=== PATIENT | male | born 1945 | race Caucasian/White ===

== ENCOUNTER 2018-05-03 09:54 | Inpatient (IN) | payer MEDICARE, OTHER ==
--- NOTE | 2018-05-03 10:11 | ED ---
HPI Chest Pain - HPI Summary HPI Summary: This is scribe Paulo Burleson documenting for attending Dr. Ed Sidhu. This patient is a 73 year old M presenting to [facility] with a chief complaint of 8/10 at its worst chest pain and pressure since 0800. Pt endorses the pain is diffuse across his entire chest. He denies no more than baseline SOB, and endorses he smoked in the past. He denies PMHx NE, and states he has had stress test 6 months ago. PMHx HTN, HLD, no DM. Currently he denies N/V. Given NTG by EMS, took ASA before EMS arrival, both of which helped sx. I, Dr. Ward personally performed the services described in this documentation as scribed in my presence and it is both accurate and complete. - History of Current Complaint Chief Complaint: EDChestPainROMI Time Seen by Provider: 05/03/18 10:02 Hx Obtained From: Patient Timing: Intermittent Initial Severity: Severe Current Severity: Mild Pain Intensity: 1 Pain Scale Used: 0-10 Numeric Chest Pain Location: Diffuse Chest Pain Radiates: No Character: Pressure/Squeezing Aggravating Factor(s): Nothing Alleviating Factor(s): Medication - ASA, NTG 123 Associated Signs and Symptoms: Positive: Chest Pain, Shortness of Breath - but baseline. Negative: Fever, Nausea, Vomiting - Allergy/Home Medications Allergies/Adverse Reactions: Allergies Allergy/AdvReac Type Severity Reaction Status Date / Time Unable to Assess Allergy Verified 05/03/18 14:29 Home Medications: Home Medications Albuterol inh POWDER (NF) [Proair Respiclick] 2 puff INH .TID-QID PRN 05/03/18 [ History Confirmed 05/03/18] Cholecalciferol TAB* [Vitamin D TAB*] 1,000 unit PO DAILY 05/03/18 [History Confirmed 05/03/18] Doxazosin TAB* [Cardura TAB*] 4 mg PO DAILY 05/03/18 [History Confirmed 05/03/18 ] Garlic [Odorless Garlic] 500 mg PO DAILY 05/03/18 [History Confirmed 05/03/18] Levothyroxine TAB* [Synthroid TAB*] 75 mcg PO DAILY 05/03/18 [History Confirmed 05/03/18] Multivitamins/Minerals TAB* [Theragran/minerals TAB*] 1 tab PO DAILY 05/03/18 [ History Confirmed 05/03/18] Nisoldipine ER (NF) [Sular (NF)] 8.5 mg PO DAILY 05/03/18 [History Confirmed 05/13] Simvastatin TAB(NF) [Zocor(NF)] 20 mg PO DAILY 05/03/18 [History Confirmed 05/03] Topiramate TAB(*) [Topamax 100 mg tab] 200 mg PO BID 05/03/18 [History Confirmed 05/03/18] PMH/Surg Hx/FS Hx/Imm Hx Endocrine/Hematology History: Denies: Hx Diabetes Cardiovascular History: Reports: Hx Hypercholesterolemia, Hx Hypertension Denies: Hx Myocardial Infarction Sensory History: Denies: Hx Legally Blind, Hx Deafness Opthamlomology History: Denies: Hx Legally Blind EENT History: Denies: Hx Deafness Psychiatric History: Denies: Hx Panic Disorder, Hx Schizophrenia Infectious Disease History: No Infectious Disease History: Denies: Traveled Outside the [place] in Last 30 Days - Family History Known Family History: Negative: Blood Disorder - Social History Occupation: Retired Alcohol Use: Rare Substance Use Type: Reports: None Hx Tobacco Use: Yes Smoking Status (MU): Former Smoker Review of Systems Negative: Fever Positive: Chest Pain Positive: Shortness Of Breath Negative: Vomiting, Nausea Positive: no symptoms reported Positive: Myalgia - CP radiating to back All Other Systems Reviewed And Are Negative: Yes Physical Exam - Summary Physical Exam Summary: VITAL SIGNS: Reviewed. GENERAL: Patient is an obese male who is lying comfortable in the stretcher. Patient is not in any acute respiratory distress. HEAD AND FACE: No signs of trauma. No ecchymosis, hematomas or skull depressions. No sinus tenderness. EYES: PERRLA, EOMI x 2, No injected conjunctiva, no nystagmus. EARS: Hearing grossly intact. Ear canals and tympanic membranes are within normal limits. MOUTH: Oropharynx within normal limits. NECK: Supple, trachea is midline, no adenopathy, no JVD, no carotid bruit, no c- spine tenderness, neck with full ROM. CHEST: Symmetric, no tenderness at palpation LUNGS: Clear to auscultation bilaterally. No wheezing or crackles. CVS: Regular rate and rhythm, S1 and S2 present, no murmurs or gallops appreciated. ABDOMEN: Soft, non-tender. No signs of distention. No rebound no guarding, and no masses palpated. Bowel sounds are normal. EXTREMITIES: FROM in all major joints, no edema, no cyanosis or clubbing. NEURO: Alert and oriented x 3. No acute neurological deficits. Speech is normal and follows commands. SKIN: Dry and warm Triage Information Reviewed: Yes Vital Signs On Initial Exam: Initial Vitals Temp Pulse Resp BP Pulse Ox 97.5 F 73 17 131/72 95 05/03/18 09:55 05/03/18 09:55 05/03/18 09:55 05/03/18 09:55 05/03/18 09:55 Vital Signs Reviewed: Yes Diagnostics - Vital Signs Vital Signs Temp Pulse Resp BP Pulse Ox 05/03/18 09:55 97.5 F 73 17 131/72 95 - Laboratory Result Diagrams: 05/03/18 10:43 05/03/18 10:43 Lab Statement: Any lab studies that have been ordered have been reviewed, and results considered in the medical decision making process. - Radiology CXR Xray Interpretation: No Acute Changes Radiology Interpretation Completed By: Radiologist - No active disease. Dr. Ward has reviewed this report. - EKG 1001 Cardiac Rate: NL - 75 EKG Rhythm: Sinus Rhythm ST Segment: Normal Ectopy: None EKG Interpretation: nl axis, no ST elevation 1443 Cardiac Rate: Bradycardia - 55 EKG Rhythm: Sinus Bradycardia ST Segment: Normal Ectopy: None EKG Interpretation: No ST elevations, nl axis. Re-Evaluation - Re-Evaluation First Eval Re-Evaluation Time: 12:29 Change: Improved Comment: Pt denies CP at this time. Second Eval Re-Evaluation Time: 15:52 Change: Worse Comment: Pt is now wheezing, will be given albuterol. Chest Pain Course/Dx - Course Assessment/Plan: This patient is a 73-year-old male who presents to the emergency room with a chief complaint of having chest pain. He reports that the pain is a pressure-like pain without radiation. He denies any shortness of breath dizziness or palpitations. Initially the ED course the patient was placed on a retail bakery manager, IV access was obtained, he already took aspirin this morning and he was given nitroglycerin by EMS. Patient reports that after the Nitroglycerin the symptoms improved. Test results without any significant abnormality except for glucose of 140. Urinalysis is negative for UTI. Chest x -ray impression: no active disease. EKG shows no ST elevations. The patient has remained stable and without any chest pain since arrival to the emergency department. The first troponin is 0.00, however the second troponin is elevated to 0.12. The second EKG doesnt show any ST elevations. He reassessment the patient is wheezing slightly bilaterally therefore the patient was given albuterol. Dr. Joe is consulting for the patient since the patient is having and increase in troponin. She recommends for the patient to be placed on a nitro drip and nifedipine drip. The patient also be getting a heparin drip. These medications was ordered by Herrera Cassidy NP. At this point because of the increased troponin I discussed my physical exam and findings with Dr. Diaz from the hospitalist services who accepted the patient for admission. The patient is hemodynamically stable alert oriented 3. - Chest Pain Differential Diagnosis/HQI/PQRI: Acute NE, ACS, Angina, CHF, Chest Wall, GI Disease, Lower Respiratory Infection - Diagnoses Provider Diagnoses: Unstable angina, Elevated troponin - Provider Notifications Discussed Care Of Patient With: Merlyn Diaz Time Discussed With Above Provider: 14:55 Instructed by Provider To: Other - Accepted admission - Critical Care Time Critical Care Time: 75-104 min Discharge - Sign-Out/Discharge Documenting (check all that apply): Patient Departure - Admit - Discharge Plan Condition: Fair Disposition: ADMITTED TO [facility] - Billing Disposition and Condition Condition: FAIR Disposition: Admitted to [facility] Consult Consult: 1450: Dr. Joe: recommends admission.
[2018-05-03 10:53] LABS: Hematocrit 46 % (42-52); Hemoglobin 15.7 g/dl (14.0-18.0); Mean Corpuscular HGB Conc 34 g/dl (31-36); Mean Corpuscular Hemoglobin 31 pg (27-31); Mean Corpuscular Volume 91 fL (80-94); Platelet Count 161 10^3/ul (150-450); Red Blood Count 5.05 10^6/ul (4.00-5.40); Red Cell Distribution Width 13 % (10.5-15); White Blood Count 9.2 10^3/ul (3.5-10.8)
[2018-05-03 10:54] LABS: ABS Basophils 0 10^3/ul (0-0.2); ABS Eosinophils 0.1 10^3/ul (0-0.6); ABS Lymphocytes 1.1 10^3/ul (1.0-4.8); ABS Monocytes 0.6 10^3/ul (0-0.8); ABS Neutrophils 7.4 10^3/ul (1.5-7.7); ABS Nucleated RBC 0 10^3/ul; Eosinophil % 1.5 % (0-6); Lymphocyte % 11.4 % (25-47); Mean Platelet Volume 7.7 um3 (7.4-10.4); Nucleated Red Blood Cells % 0.1
[2018-05-03 11:03] LABS: INR 1.03 (0.77-1.02)
--- NOTE | 2018-05-03 11:11 | RAD ---
INDICATION: Chest pain COMPARISON: June 22, 2016 TECHNIQUE: An AP portable view obtained at 1057 hours is submitted. FINDINGS: Bones/Soft Tissues: There are no acute bony findings. Cardiomediastinal: The cardiomediastinal silhouette is normal. Lungs: There are no infiltrates. Pleura: There are no pleural effusions. Other: None IMPRESSION: NO ACTIVE DISEASE.
[2018-05-03 11:12] LABS: Urine Appearance Clear; Urine Blood Negative (Negative); Urine Color Yellow; Urine Ketones Negative (Negative); Urine Protein Negative (Negative); Urine Specific Gravity 1.011 (1.010-1.030); Urine Urobilinogen Negative (Negative)
[2018-05-03 11:16] LABS: EGFR Non-African American 78.2 (>60)
[2018-05-03] MEDS ORDERED: Acetaminophen TAB* 325 MG PO PRN (15:36)
[2018-05-03] MEDS ORDERED: Albuterol HFA INHALER* 8 gm MDI INH PRN (15:42)
[2018-05-03] MEDS ORDERED: Heparin DRIP 25,000 UNITS(*) 25,000 UNITS/500 ML BAG IV SCH (15:45)
[2018-05-03] MEDS ORDERED: Levalbuterol 1.25MG/0.5ML NEB INH ONE (15:53)
[2018-05-03] MEDS ORDERED: amLODIPine TAB* 5 MG PO SCH (16:00)
[2018-05-03] MEDS ORDERED: Levalbuterol 1.25MG/0.5ML NEB INH PRN (16:01)
[2018-05-03] MEDS: Atorvastatin* 80 MG TAB PO SCH ×2 (16:14→17:14)
[2018-05-03] MEDS: amLODIPine TAB* 5 MG PO SCH (16:14)
[2018-05-03] MEDS: Heparin VIAL(*) 5000 UNITS/ML VIAL (FIVE THOUSAND) IV PRN (16:31)
[2018-05-03] MEDS: nitroGLYCERIN DRIP* 25,000 MCG/250 ML BTL IV SCH (16:35)
--- NOTE | 2018-05-03 18:59 | HP ---
CC: Dr. Greene; Dr. Joe * HISTORY AND PHYSICAL: DATE OF ADMISSION: 05/03/18. PRIMARY CARE PROVIDER: Dr. Greene. ATTENDING PHYSICIAN WHILE IN THE HOSPITAL: Merlyn Diaz DO * (report dictated by Herrera Cassidy NP). CONSULTING PAPER MAKER: Dr. Joe. CHIEF COMPLAINT: 1. Chest pressure. 2. Not feeling well. HISTORY OF PRESENT ILLNESS: Mr. Saldana is a 73-year-old male patient. He carries a history of hypertension, hyperlipidemia. He also carries a history of hypothyroidism and seizures. He comes into our emergency department today, stating that this morning, he got up to make his breakfast, he was getting a glass of milk and he just was not feeling well. He just was feeling weak. He was feeling short of breath. He just was feeling wore out and tired. He started getting chest discomfort. He sat down, the pain got much worse. He got this in his chest, this was around 08:30. He was scheduled to go see, had an appointment with Dr. Greene. He got nauseated. He was feeling sweaty. The pain was going into his chest, into his shoulder, to his back. He sat down , when he took aspirin with his and the discomfort went away. It took about 10 to 15 minutes. She was concerned and she called 911 and the patient was brought to the hospital. He does state that he has noticed over the last several weeks that he has had episodes of feeling dyspnea on exertion. He has not really been having any chest pain on exertion, but there has been a lot of dyspnea on exertion, lot of decreased exercise tolerance and he just has not been feeling well. He says he has not had any recent cough, fevers, chills, nausea, vomiting, or diarrhea. He said today he did not feel lightheaded. He did not feel like he was going to faint or pass out, but he just did not feel right. He denies any recent change in medications. He came into the ER, he was evaluated. Initially, EKG and troponin looked okay. Second troponin though was elevated and because of his story and the fact that in the ED he did have a 8-beat run of V-tach, we were asked to evaluate for admission. PAST MEDICAL HISTORY: Significant for: 1. Hypertension. 2. Hyperlipidemia. 3. Hypothyroidism. 4. Seizures. PAST SURGICAL HISTORY: He denied. HOME MEDICATIONS: Include: 1. ProAir 2 puffs inhaled t.i.d. as needed. 2. Nisoldipine 8.5 mg daily. 3. Vitamin D 1000 units p.o. daily. 4. Garlic 500 mg p.o. daily. 5. Multivitamin 1 tablet daily. 6. Synthroid 75 mcg daily. 7. Zocor 20 mg daily. 8. Topamax 200 mg p.o. b.i.d. 9. Cardura 4 mg p.o. daily. ALLERGIES TO MEDICATIONS: Include LEVAQUIN, AMOXICILLIN, and ALBUTEROL. FAMILY HISTORY: He says mother had a history of CHF. Father had a history of CAD. SOCIAL HISTORY: He is a former smoker. He does not drink alcohol. Surrogate decision maker is his . REVIEW OF SYSTEMS: There is no documented fever. He denies having any significant weight change. There was no double vision. He denies having any ear discharge. There was no rhinorrhea. He denies having any sore throat. There was no thyroid enlargement. There was chest pain per my HPI. There was no orthopnea. There was no nocturnal dyspnea. There was no abdominal pain. There was no nausea, no vomiting, no dysuria. No frequency. No seizure. No loss of consciousness. No pruritus and no skin ulcerations. Review of 14 systems completed, all others negative. PHYSICAL EXAMINATION GENERAL: At this time, Mr. Saldana is a 73-year-old male patient. He appears to be well-nourished, well-developed. He is sitting in the ED stretcher. He does not appear to be in any acute distress. VITAL SIGNS: Blood pressure 157/81, pulse 60, respirations 16, O2 sat 99%, temperature 97.9. HEENT: Head is atraumatic and normocephalic. Eyes: EOMs are intact. Sclerae anicteric and not pale. Throat: Oral mucosa appears to be moist. No oropharyngeal erythema. NECK: Supple. LUNGS: He had wheezing noted throughout. HEART: Sounds S1, S2. Regular rate and rhythm. ABDOMEN: Soft, flat, nontender. Bowel sounds are present. EXTREMITIES: Pulses were 2+ throughout. He is moving all 4 extremities with 5/ 5 strength. NEUROLOGIC: He is awake, alert, and oriented x3. No gross focal deficits. SKIN: Intact. LABORATORY DATA/DIAGNOSTIC STUDIES: Labs, WBC 9.2, RBC of 5.05, hemoglobin of 15.7, hematocrit of 46, platelet count 161. His INR was 1.03. PTT of 32.9. Sodium was 138, potassium of 4.2, chloride 109, bicarb 23, BUN 14, creatinine 0.94. Glucose 140, lactic 0.9, calcium 8.9, mag 2.1, total bili 0.3, AST 19, ALT 14, alk phos 84, CK was 67, CK-MB 3.1. Troponin was 0.01, repeat troponin was 0.12. BNP 131. TSH normal. Urine preop negative. He did have a chest x-ray obtained today, which revealed no active cardiopulmonary disease. He had an EKG, which showed sinus bradycardia. No ST elevations or T-wave inversions, but his initial EKG showed a normal sinus rhythm, rate of 75, again no ST elevations or T-wave inversions. Old medical records were reviewed. ASSESSMENT AND PLAN: Mr. Saldana is a 73-year-old male patient coming into the ED today with complaints of chest pain. He will be admitted under inpatient status for: 1. Acute coronary syndrome: I suspect the patient is having a [id number] elevation myocardial infarction. I did touch base with Dr. Joe, she has evaluated the patient. Plan: He does have a little bit of residual chest discomfort. He says it is nowhere near once what it was. I am going to put him on nitrates in the form of IV nitro, amlodipine. He has got plenty of blood pressures, his last blood pressure actually was 178/100. I will go ahead and put him on a baby aspirin, high-dose statin, avoid beta-blockers given the episodes of bradycardia. Dr. Joe will touch base with Dr. Stevens. I have ordered an echo. We will cycle his troponins, get an EKG in the morning and we will continue to follow. He will be n.p.o. If the chest pain does not go away , we will certainly touch base with Dr. Stevens for a more urgent cath. 2. Hypertension: Again nitro drip, continue amlodipine. Continue to follow. 3. Wheezing on exam: He probably has underlying chronic obstructive pulmonary disease and he clarifies albuterol allergy. We will order Xopenex if we are able. 4. Hyperlipidemia: He is on high-dose statin therapy. We will check lipid panel in the morning. 6. DVT prophylaxis: He is on a heparin drip. 7. Hypothyroidism: Continue Synthroid. 8. History of seizures: I have ordered seizure precautions and Topamax. 9. Code status: Full code. 10. Fluid, electrolytes, nutrition: He is n.p.o. pending for a possible cath. TIME SPENT: Time spent on the admission was 60 minutes, greater than half of the time was spent [id number] with the patient obtaining my history and physical, the other half of the time was spent going over the plan of care with the patient and implementing the plan of care. I did discuss plan of care with my attending, Dr. Diaz, she is in agreement. HERRERA CASSIDY, LUIS M [id number]/[facility] #: [id number] SATYA
[2018-05-03] MEDS: Topiramate TAB(*) 100 MG PO SCH (20:44)
--- NOTE | 2018-05-03 21:36 | CONS ---
CC: Armani Patterson; Dr. Greene at [facility] * CARDIOLOGY CONSULTATION: DATE OF CONSULTATION: 05/03/18. REASON FOR CONSULTATION: Chest pain and elevated troponins. CHIEF COMPLAINT: The patient's chief complaint is chest pain. HISTORY OF PRESENT ILLNESS: Mr. Saldana is a 73-year-old gentleman with atherosclerotic risk, but no prior cardiac history. The patient states, he awoke this morning to go see his primary care physician, Dr. Greene and then developed quite severe chest tightness. He took an aspirin with improvement. He called an ambulance, he was given nitroglycerin. He does not think that help him a lot more and then in the emergency room was found to be hypertensive with an EKG initially was normal. Rhythm strips, however, revealed a brief run of nonsustained ventricular tachycardia and his second troponin came back elevated. At the time, I saw him, the patient stated he had mild residual chest discomfort. He did not think he has eaten anything unusual. He denies missing any medications. He denies any new [id number] medications. He has had no recent travel. No recent fevers, chills, sweats, infections, headaches. His son's girlfriend was in the room, but no other family members at the time of the exam. PAST MEDICAL HISTORY: The patient has a past medical history of hypertension, dyslipidemia, hypothyroid disease, COPD, benign prostatic hypertrophy, centripetal obesity, and hyperglycemia. He has a history of seizure disorder. CURRENT OUTPATIENT MEDICATIONS: Include: 1. Nisoldipine ER 8.5 mg a day. 2. Nitrofurantoin. 3. ProAir inhaler. 4. Multi-Mark. 5. Garlic. 6. Simvastatin 20 mg a day. 7. Levothyroxine 75 mcg. 8. Topiramate 200 mg a day. 9. Doxazosin 1 mg a day. ALLERGIES: Include CARBATROL, LEVOFLOXACIN, and AUGMENTIN. FAMILY HISTORY: Significant, his mother had hypertension and diabetes. His father had a history of prostate cancer. No coronary disease in parents or siblings identified. SOCIAL HISTORY: The patient is . 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 Smoked a pack and a half a day for 38 years, quit in 1994. Past alcohol abuse, but none recently. No history of recreational drug abuse. REVIEW OF SYSTEMS: As above, no prior history of this type of chest tightness. No recent orthopnea or PND, although he says he does have nocturia and once he gets up to urinate it is hard to fall asleep. He denies any history of sleep apnea. He denies recent fevers, chills, sweats, change in exercise tolerance. No sinus, ear problems. No dysphagia. No trouble with bowel or bladder currently. No swelling in the legs. All other 14-point review of systems was unremarkable. PHYSICAL EXAM: On exam, the patient is 5 feet 10 inches, weighs 220 pounds with a BMI of 32. Vital signs on arrival to the emergency room, blood pressure 131/72, pulse was 73, oxygen saturation 95%, temperature 97.5. At the time of my exam, blood pressure was 170/115, pulse was 55 to 62. General Appearance: Centripetally obese, older gentleman lying 40 degrees, appearing comfortable. Psychologically pleasant and cooperative. Neurologically, he is a bit hard of hearing, but awake, alert and oriented to person, place and time. Other than the hearing, cranial nerves intact. Gait is not checked, but moved well on the examining table. Skin: Age appropriate changes. Skin: Warm, dry. No cyanosis. HEENT: Mucus membranes were moist. Neck without thyromegaly or lymphadenopathy. Good carotid pulses, no audible bruits. Breath sounds, diffuse inspiratory and expiratory wheezing in all lung puente. Coronary: S1, S2, regular bit distant, but no murmurs, rubs, or extra systoles. Abdomen: Rotund. No epigastric discomfort. No appreciable hepatomegaly. Lower extremities had strong 2 to 3+ posterior tibial pulses that are symmetrical and strong symmetrical radial pulses. DIAGNOSTIC STUDIES: A 12-lead ECG at 10 this morning showed normal sinus rhythm 75 beats a minute, QRS axis is 0 with normal AV and IV conduction times and unremarkable ST, J-point type variant is normal. A 12-lead ECG at 1443 showed sinus bradycardia of 55 beats a minute, QRS axis is - 15, borderline first-degree AV block, normal interventricular conduction time. Sonogram, ST segment unremarkable. Chest x-ray showed no active disease. LABORATORY DATA: White count 9.2, hematocrit 46, platelets 161. INR 1.03, PTT 33. Sodium 138, potassium 4.2, chloride 109, bicarb 23, BUN 14, creatinine 0.94, glucose 140, magnesium 2.1, AST 19, ALT 15. Troponin #1, 0.01; troponin #2, 0.12. BNP 71. TSH 1.97. Urinalysis negative for esterase and nitrites. Negative for glucose or ketones. Lipid panel from 09/28/17, showed total cholesterol 137, triglycerides 138, HDL cholesterol 34, and LDL cholesterol 75. OUTPATIENT STUDIES: He had a nuclear stress test, 06/03/16 (exercise stress), no inducible ischemia. Ejection fraction 59% and he was able to walk to stage 2 of the standard Magnus protocol with a hypertensive response. IN SUMMARY: Mr. Saldana is a 73-year-old gentleman admitted with chest tightness, atherosclerotic risk of dyslipidemia, hyperglycemia, centripetal obesity, hypertension with unremarkable EKGs, but mild bump in troponins. For the residual chest pain, I would like to try vasodilators that also have a antianginal properties including amlodipine and nitroglycerin drip. I think his heart rate is too slow for beta blockers. We will tentatively arrange for cardiac catheterization in the morning unless his anginal pain is unable to be damp down with medical therapy. The patient has been started on unfractionated heparin drip and the net c developer was contacted. [id number]/[facility] #: [id number] SATYA
--- NOTE | 2018-05-03 23:26 | ECHO ---
Patient: ROYA HATFIELD [facility] Rec#: [id number] : 1945 Date: 05/03/2018 Age: 73y Height: 177.8 cm / 70.0 in Weight: 99.79 kg / 219.9 lbs Sex: M BSA: 2.17 Room#: [facility] Admit Date#: 05/03/2018 Type: Inpatient Referring: Herrera Cassidy NP Reading: Noris Joe MD Analytical Lab Analyst: Stephanie Colmenares KIM CC: Ramona MONTENEGRO,[facility] Transthoracic Echocardiogram Indication: CP BP: 156/64 HR: 61 Rhythm: NSR Findings History: HTN,HLD,former smoker,CP. Technical Comments: The study quality is good. Completed at 1712. Left Ventricle: The left ventricular chamber size is normal. Mild to moderate concentric left ventricular hypertrophy is observed. There is normal left ventricular systolic function. The estimated ejection fraction is 50-55%. Abnormal left ventricular diastolic function is observed. Left Atrium: The left atrium is mildly dilated. Right Ventricle: The right ventricular cavity size is normal. The right ventricular global systolic function is normal. Right Atrium: The right atrium is mildly dilated. Aortic Valve: The aortic valve is trileaflet. There is no evidence of aortic valve thickening. There is no evidence of aortic regurgitation. There is no evidence of aortic stenosis. Mitral Valve: The mitral valve leaflets are mildly thickened. There is mild mitral regurgitation. lateral jet. There is no evidence of mitral stenosis. Tricuspid Valve: The tricuspid valve leaflets are normal. There is mild tricuspid regurgitation. There is evidence of mild pulmonary hypertension. There is no tricuspid stenosis. Pulmonic Valve: The pulmonic valve appears normal. There is a trace pulmonic regurgitation. There is no pulmonic stenosis. Pericardium: A pericardial fat pad is visualized. Aorta: There is mild dilatation of the ascending aorta. There is no dilatation of the aortic arch. There is no dilation of the aortic root. Pulmonary Artery: The main pulmonary artery appears normal. Venous: The venous system is not well visualized. Conclusions Mild to moderate concentric left ventricular hypertrophy is observed. The estimated ejection fraction is 50-55%, normal wall motion. Abnormal left ventricular diastolic function is observed. The right ventricular global systolic function is normal. There is mild mitral regurgitation. lateral jet. There is mild tricuspid regurgitation. There is evidence of mild pulmonary hypertension: 45 mmHg. There is mild dilatation of the ascending aorta: 3.7 cm. No prior echo to compare. Measurements Name Value Normal Range RVIDd (AP) 2D 2.4 cm (0.9 - 2.6) RVDdMajor (2D) 3.9 cm (2.2 - 4.4) RAd ISD 4CH 5 cm (3.4 - 4.9) RA (A4C)W 4.5 cm (2.9 - 4.6) IVSd (2D) 1.2 cm (0.6 - 1) LVPWd (2D) 1.3 cm (0.6 - 1) LVIDd (2D) 5 cm (3.6 - 5.4) LVIDs (2D) 3.9 cm - LV FS (2D) 22 % (25 - 45) Aortic Annulus 2 cm (1.4 - 2.6) Ao root diameter (2D) 3.1 cm (2.1 - 3.5) Ascending Ao 3.7 cm (2.1 - 3.4) Aortic arch 2.7 cm (1.8 - 3.4) Descending Ao 0.5 cm - LA dimension (AP) 2D 4.1 cm (2.3 - 3.8) LAd ISD 4CH 5.4 cm (2.9 - 5.3) LA ISD 4CH W 3.6 cm (2.5 - 4.5) Name Value Normal Range LA ESV SP 4CH (A/L) 50 ml - LA ESV SP 2CH (A/L) 55 ml - LA ESV BP (A/L) 56 ml - LA ESV BP (A/L) index 23.67 ml/m2 - LA ESV SP 4CH (MOD) 43 ml - LA ESV SP 2CH (MOD) 48 ml - Name Value Normal Range MV E-wave Vmax 1 m/sec - MV deceleration time 151 msec - MV A-wave Vmax 1 m/sec - MV E:A ratio 0.99 ratio - LV septal e' Vmax 0.06 m/sec - LV lateral e' Vmax 0.12 m/sec - LV E:e' septal ratio 16.67 ratio - LV E:e' lateral ratio 8.33 ratio - Name Value Normal Range AV Vmax 1.2 m/sec - AV VTI 33.6 cm - AV peak gradient 5.58 mmHg - AV mean gradient 3.21 mmHg - LVOT Vmax 0.9 m/sec - LVOT VTI 24.6 cm - LVOT peak gradient 3.42 mmHg - LVOT mean gradient 1.63 mmHg - Name Value Normal Range MR Vmax 3.7 m/sec - MR VTI 159 cm - Name Value Normal Range TR Vmax 3 m/sec - TR peak gradient 37 mmHg - RAP 8 mmHg - RVSP 45 mmHg - Name Value Normal Range PV Vmax 1.1 m/sec - PV peak gradient 4.53 mmHg -
[2018-05-04] MEDS: Levothyroxine TAB* 75 MCG TAB PO SCH (05:38)
[2018-05-04 06:20] LABS: ABS Basophils 0.1 10^3/ul (0-0.2); ABS Eosinophils 0.2 10^3/ul (0-0.6); ABS Lymphocytes 1.4 10^3/ul (1.0-4.8); ABS Neutrophils 8.7 10^3/ul (1.5-7.7); ABS Nucleated RBC 0 10^3/ul; Eosinophil % 1.7 % (0-6); Hematocrit 43 % (42-52); Hemoglobin 14.9 g/dl (14.0-18.0); Lymphocyte % 12.5 % (25-47); Mean Corpuscular HGB Conc 35 g/dl (31-36); Mean Corpuscular Hemoglobin 31 pg (27-31); Mean Corpuscular Volume 90 fL (80-94); Mean Platelet Volume 7.8 um3 (7.4-10.4); Nucleated Red Blood Cells % 0.1; Platelet Count 153 10^3/ul (150-450); Red Blood Count 4.73 10^6/ul (4.00-5.40); Red Cell Distribution Width 13 % (10.5-15); White Blood Count 11.3 10^3/ul (3.5-10.8)
[2018-05-04 06:26] LABS: INR 1.02 (0.77-1.02)
[2018-05-04 06:37] LABS: EGFR Non-African American 80.2 (>60)
[2018-05-04] MEDS: Heparin VIAL(*) 5000 UNITS/ML VIAL (FIVE THOUSAND) IV PRN (07:16)
[2018-05-04] MEDS ORDERED: NS 0.9% 1000 ML* 1,000 ML IV SCH (08:00)
[2018-05-04] MEDS: Topiramate TAB(*) 100 MG PO SCH ×2 (08:41→22:13)
[2018-05-04] MEDS: Aspirin 81 mg CHEW TAB* 81 MG TAB.CHEW PO SCH (08:42)
[2018-05-04] MEDS: amLODIPine TAB* 5 MG PO SCH (08:42)
[2018-05-04] MEDS: nitroGLYCERIN DRIP* 25,000 MCG/250 ML BTL IV SCH (10:04)
[2018-05-04] MEDS ORDERED: fentaNYL* 50 MCG/ML 2 ML VIAL (100 MCG VIAL) ONE ×2 (10:23→12:49)
[2018-05-04] MEDS ORDERED: Midazolam* 1 MG/ML 10 ML VIAL (10 MG) ONE (10:23)
[2018-05-04] MEDS ORDERED: Heparin 2 UNITS/ML IVPREMIX* 3,000 ML IV ONE (10:24)
[2018-05-04] MEDS ORDERED: nitroGLYCERIN DRIP* 25,000 MCG/250 ML BTL ONE (10:24)
[2018-05-04] MEDS ORDERED: Heparin(*) 1000 UNIT/ML 10 ML VIAL CATH LAB IV ONE (10:24)
[2018-05-04] MEDS ORDERED: VERAPAMIL 2.5 MG/ML 2 ML VIAL ** 5 mg/2 ml ONE (10:24)
[2018-05-04] MEDS ORDERED: Iohexol 350 (CONTRAST) 200 ML MDV IV ONE ×2 (10:24→10:27)
[2018-05-04] MEDS ORDERED: Ticagrelor* 90 MG TAB PO ONE (11:40)
[2018-05-04] MEDS ORDERED: NS 0.9% 1000 ML* 400 ML IV ONE (13:26)
[2018-05-04] MEDS ORDERED: Nitroglycerin TAB 0.4 MG* 0.4 MG TAB SL PRN (13:26)
--- NOTE | 2018-05-04 14:33 | PN ---
Subjective Date of Service: 05/04/18 Interval History: Pt sitting up in bed A+O x3 with at his bedside. He reports he "feels great ". Denies any CP. He underwent cardiac cath and had a stent placed. Objective Active Medications: Acetaminophen (Tylenol Tab*) 650 mg PO Q4H PRN PRN Reason: FEVER/PAIN Albuterol (Ventolin Hfa Inhaler*) 2 puff INH TID PRN PRN Reason: SHORTNESS OF BREATH Amlodipine Besylate (Norvasc Tab*) 5 mg PO DAILY [facility] Last Admin: 05/04/18 08:42 Dose: 5 mg Aspirin (Aspirin 81 Mg Chew Tab*) 81 mg PO DAILY [facility] Last Admin: 05/04/18 08:42 Dose: 81 mg Atorvastatin Calcium (Lipitor*) 80 mg PO 1700 [facility] Last Admin: 05/03/18 17:14 Dose: Not Given Sodium Chloride (Ns 0.9% 1000 Ml*) 400 mls @ 100 mls/hr IV .FOR 4 HOURS ONE Stop: 05/04/18 17:25 Last Admin: 05/04/18 13:51 Dose: 100 mls/hr Levalbuterol HCl (Xopenex 1.25 Mg/0.5 Ml Neb.Zara*) 1.25 mg INH Q2H PRN PRN Reason: SOB/WHEEZING Last Admin: 05/03/18 17:04 Dose: 1.25 mg Levothyroxine Sodium (Synthroid Tab*) 75 mcg PO DAILY@0600 [facility] Last Admin: 05/04/18 05:38 Dose: 75 mcg Nitroglycerin (Nitroglycerin Tab 0.4 Mg*) 0.4 mg SL Q5M PRN PRN Reason: ANGINA Ticagrelor (Brilinta*) 90 mg PO BID [facility] Topiramate (Topamax(*)) 200 mg PO BID [facility] Last Admin: 05/04/18 08:41 Dose: 200 mg Vital Signs - 8 hr 05/04/18 05/04/18 05/04/18 07:00 07:30 07:36 Temperature 99.4 F Pulse Rate 57 66 Respiratory 20 17 Rate Blood Pressure 127/57 127/59 (mmHg) O2 Sat by Pulse 94 95 Oximetry 05/04/18 05/04/18 05/04/18 07:52 08:00 08:31 Temperature Pulse Rate 62 70 Respiratory 20 23 20 Rate Blood Pressure 135/54 132/112 (mmHg) O2 Sat by Pulse 96 97 Oximetry 05/04/18 05/04/18 05/04/18 09:00 09:30 10:00 Temperature Pulse Rate 69 69 63 Respiratory 16 19 22 Rate Blood Pressure 134/58 144/65 136/57 (mmHg) O2 Sat by Pulse 93 94 92 Oximetry 05/04/18 05/04/18 05/04/18 10:30 13:00 13:27 Temperature Pulse Rate 63 76 Respiratory 15 19 Rate Blood Pressure 139/56 (mmHg) O2 Sat by Pulse 93 95 Oximetry 05/04/18 05/04/18 05/04/18 13:29 13:30 13:46 Temperature Pulse Rate 65 71 61 Respiratory 17 16 23 Rate Blood Pressure 118/48 132/57 126/54 (mmHg) O2 Sat by Pulse 98 95 96 Oximetry 05/04/18 05/04/18 05/04/18 14:00 14:04 14:16 Temperature 99.2 F Pulse Rate 77 75 Respiratory 17 23 Rate Blood Pressure 118/57 (mmHg) O2 Sat by Pulse 94 96 Oximetry Oxygen Devices in Use Now: Nasal Cannula Appearance: A+Ox3 Eyes: No Scleral Icterus, PERRLA Ears/Nose/Mouth/Throat: NL Teeth, Lips, Gums, Mucous Membranes Moist Neck: NL Appearance and Movements; NL JVP Respiratory: Symmetrical Chest Expansion and Respiratory Effort, Clear to Auscultation Cardiovascular: NL Sounds; No Murmurs; No JVD, RRR, No Edema Abdominal: NL Sounds; No Tenderness; No Distention Extremities: No Edema, No Clubbing, Cyanosis Skin: No Rash or Ulcers, No Nodules or Sclerosis Neurological: Alert and Oriented x 3, NL Sensation, NL Muscle Strength and Tone Lines/Tubes/Other Access: Clean, Dry and Intact Peripheral IV Nutrition: Taking PO's Result Diagrams: 05/04/18 06:01 05/04/18 06:01 Microbiology and Other Data: Microbiology 05/03/18 16:42 Nasal Screen MRSA (PCR) - Final Nasal Mrsa Not Detected Assess/Plan/Problems-Billing Assessment: 73 yo male with a PMH of HTN, HLD, hypothyroidism, seizure disorder who presented on 05/03 to the emergency department with chest pain found to have a NSTEMI who underwent a cardiac catherization with stent placement - Patient Problems (1) NSTEMI (non-ST elevated myocardial infarction) Comment: - chest pain free -s/p cardiac cath wth stent placement to the mid circumflex - continue Brillinta, ASA, Statin, norvasc (HR too low for BB per cardiology) (2) HTN (hypertension) Comment: - continue norvasc (3) Seizure disorder Comment: - no seizure activity - continue Topamax (4) DVT prophylaxis Status and Disposition: inpatient. home when medically stable
[2018-05-04] MEDS: Atorvastatin* 80 MG TAB PO SCH (17:07)
--- NOTE | 2018-05-04 21:56 | CONS ---
CC: Dr. Greene; Dr. Joe * INTERVENTIONAL CARDIOLOGY CONSULT NOTE: DATE OF CONSULT: 05/04/18 PRIMARY: Dr. Greene. BPM ARCHITECT: Dr. Joe. HISTORY OF PRESENT ILLNESS: A 73-year-old male with non-ST elevation infarct. Interventional cardiology was consulted for further evaluation. He has no previous cardiac history, presented with chest pain, and slowly rising troponins, had a short burst of nonsustained VT in the ER. Electrocardiograms have not showed ischemic changes. His chest pain gradually improved with medical management and finally resolved. This morning, he is pain free. PAST MEDICAL HISTORY: Hypertension, hyperlipidemia, hypothyroidism, history of remote seizures. ALLERGIES: To ANTIBIOTICS and ALBUTEROL. SOCIAL HISTORY: He is . He is an ex-smoker. REVIEW OF SYSTEMS: General: No weight loss. No fever. FEEDER ASSOCIATE: He denies any history of TIA or CVA. GI: No history of peptic ulcer disease or bleeding. Heme: No history of malignancy or anemia. Remainder all negative. PHYSICAL EXAM: BP at 0800 135/54, pulse 64, on IV nitroglycerin. His lungs are clear without rales or wheezes. JVP is normal. Carotids normal without bruits. HEENT: Normal without xanthelasma. EOMs grossly normal. Cranial nerves intact. Cardiac Exam: Regular rhythm, no palpable apical impulse, no RV lift. Normal heart sounds. Rhythm regular, no gallop or murmur. Abdomen is obese, nontender. No bruit. I cannot feel the aorta. Radial, femoral, and pedal pulses are palpable. He has no cyanosis, clubbing, or edema. Skin is warm and perfused. DIAGNOSTIC STUDIES/LAB DATA: Admission BMP notable only for random blood sugar of 140, but hemoglobin A1c in September was 5.6. His BNP 71. Cholesterol 116, triglycerides high at 155, LDL 58, HDL low at 27.1. Troponin initially 0.01, then 0.12, 0.88, 3.73. Chest x-ray reported as without acute disease. EKG normal sinus rhythm, poor R wave progression, he has not had any ischemic ST changes. Echocardiogram reported EF 50 to 55 with normal wall motion, diastolic dysfunction. IMPRESSION: 1. Non-ST elevation infarct. His chest discomfort gradually resolved with medical therapy. We have discussed catheterization, possible revascularization , procedure, risks, and complications including need for bypass grafting, CVA, bleeding, GA, stroke, etc. 2. Hypertension. 3. Dyslipidemia. 4. Obesity. [id number]/[facility] #: [id number] SATYA
[2018-05-04] MEDS: Ticagrelor* 90 MG TAB PO SCH (22:13)
[2018-05-05 04:55] LABS: ABS Basophils 0 10^3/ul (0-0.2); ABS Eosinophils 0.2 10^3/ul (0-0.6); ABS Lymphocytes 1.6 10^3/ul (1.0-4.8); ABS Monocytes 1.2 10^3/ul (0-0.8); ABS Neutrophils 8.2 10^3/ul (1.5-7.7); ABS Nucleated RBC 0 10^3/ul; Eosinophil % 1.6 % (0-6); Hematocrit 43 % (42-52); Lymphocyte % 14.1 % (25-47); Mean Corpuscular HGB Conc 35 g/dl (31-36); Mean Corpuscular Hemoglobin 31 pg (27-31); Mean Corpuscular Volume 91 fL (80-94); Nucleated Red Blood Cells % 0; Platelet Count 155 10^3/ul (150-450); Red Blood Count 4.78 10^6/ul (4.00-5.40); Red Cell Distribution Width 13 % (10.5-15); White Blood Count 11.3 10^3/ul (3.5-10.8)
[2018-05-05] MEDS: Levothyroxine TAB* 75 MCG TAB PO SCH (06:08)
--- NOTE | 2018-05-05 07:54 | PN ---
Subjective Date of Service: 05/05/18 Interval History: patient reports he feels good this morning, he denies any CP. He reports he had some SOB in the night but states that is not uncommon for him. He also reports he has a cough but reports this is also not abnormal for him. Denies sputum production. He denies wheezing. He denies fever.chills, he was noted to have a low grade temp overnight. Reports overall he feels well. He quit smoking in - has never seen a culturist and currently doesnt have a diagnosis of COPD. Objective Active Medications: Acetaminophen (Tylenol Tab*) 650 mg PO Q4H PRN PRN Reason: FEVER/PAIN Albuterol (Ventolin Hfa Inhaler*) 2 puff INH TID PRN PRN Reason: SHORTNESS OF BREATH Amlodipine Besylate (Norvasc Tab*) 5 mg PO DAILY [facility] Last Admin: 05/04/18 08:42 Dose: 5 mg Aspirin (Aspirin 81 Mg Chew Tab*) 81 mg PO DAILY [facility] Last Admin: 05/04/18 08:42 Dose: 81 mg Atorvastatin Calcium (Lipitor*) 80 mg PO 1700 [facility] Last Admin: 05/04/18 17:07 Dose: 80 mg Levalbuterol HCl (Xopenex 1.25 Mg/0.5 Ml Neb.Zara*) 1.25 mg INH Q2H PRN PRN Reason: SOB/WHEEZING Last Admin: 05/03/18 17:04 Dose: 1.25 mg Levothyroxine Sodium (Synthroid Tab*) 75 mcg PO DAILY@0600 [facility] Last Admin: 05/05/18 06:08 Dose: 75 mcg Nitroglycerin (Nitroglycerin Tab 0.4 Mg*) 0.4 mg SL Q5M PRN PRN Reason: ANGINA Ticagrelor (Brilinta*) 90 mg PO BID [facility] Last Admin: 05/04/18 22:13 Dose: 90 mg Topiramate (Topamax(*)) 200 mg PO BID [facility] Last Admin: 05/04/18 22:13 Dose: 200 mg Vital Signs - 8 hr 05/05/18 05/05/18 05/05/18 04:30 05:00 05:30 Temperature Pulse Rate 82 64 58 Respiratory 21 18 22 Rate Blood Pressure 121/69 132/56 139/59 (mmHg) O2 Sat by Pulse 92 92 91 Oximetry 05/05/18 05/05/18 05/05/18 06:00 06:30 07:00 Temperature Pulse Rate 60 67 63 Respiratory 26 16 13 Rate Blood Pressure 99/51 129/56 126/56 (mmHg) O2 Sat by Pulse 94 95 93 Oximetry 05/05/18 05/05/18 07:29 07:50 Temperature 99.3 F Pulse Rate 66 Respiratory 12 Rate Blood Pressure 138/56 (mmHg) O2 Sat by Pulse 92 Oximetry Oxygen Devices in Use Now: None Appearance: 73 yo male sitting up in a chair in NAD, A+Ox3 Eyes: No Scleral Icterus, PERRLA Ears/Nose/Mouth/Throat: NL Teeth, Lips, Gums, Mucous Membranes Moist Neck: NL Appearance and Movements; NL JVP Respiratory: Symmetrical Chest Expansion and Respiratory Effort, Clear to Auscultation Cardiovascular: NL Sounds; No Murmurs; No JVD, RRR, No Edema Abdominal: NL Sounds; No Tenderness; No Distention Extremities: No Edema, No Clubbing, Cyanosis Skin: No Rash or Ulcers, No Nodules or Sclerosis Neurological: Alert and Oriented x 3, NL Sensation, NL Muscle Strength and Tone Lines/Tubes/Other Access: Clean, Dry and Intact Peripheral IV Nutrition: Taking PO's Result Diagrams: 05/05/18 04:33 05/04/18 06:01 Microbiology and Other Data: Microbiology 05/03/18 16:42 Nasal Screen MRSA (PCR) - Final Nasal Mrsa Not Detected Assess/Plan/Problems-Billing Assessment: 73 yo male with a PMH of HTN, HLD, hypothyroidism, seizure disorder who presented on 05/03 to the emergency department with chest pain found to have a NSTEMI who underwent a cardiac catherization with stent placement - Patient Problems (1) NSTEMI (non-ST elevated myocardial infarction) Comment: -s/p cardiac cath 05/04 via right radial access with stent placement to the mid circumflex - continue Brillinta, ASA, Statin, norvasc (HR too low for BB per cardiology) - Dispo per cardiology (2) Leukocytosis Comment: mildy elevated WBCs. Low grade temp. No obvious source. urinalysis unremarkable. Send blood cx, initial chest xray negative, repeat chest xray noted to have some low O2 sats and reported SOB overnight (not uncommon for him though) suspect secondary to COPD, should be referred to Subeditor at discharge. Will continue to follow (3) HTN (hypertension) Comment: - controlled - continue norvasc (4) Seizure disorder Comment: - no seizure activity - continue Topamax (5) DVT prophylaxis Status and Disposition: inpatient. home when medically stable
[2018-05-05] MEDS: Aspirin 81 mg CHEW TAB* 81 MG TAB.CHEW PO SCH (07:57)
[2018-05-05] MEDS: amLODIPine TAB* 5 MG PO SCH (07:57)
[2018-05-05] MEDS: Ticagrelor* 90 MG TAB PO SCH ×2 (07:57→20:11)
[2018-05-05] MEDS: Topiramate TAB(*) 100 MG PO SCH ×2 (07:58→20:10)
--- NOTE | 2018-05-05 09:23 | RAD ---
INDICATION: Short of breath. Leukocytosis COMPARISON: May 03, 2018 TECHNIQUE: An AP portable view obtained at 0830 hours is submitted. FINDINGS: Bones/Soft Tissues: There are no acute bony findings. Cardiomediastinal: The cardiomediastinal silhouette is normal. Lungs: There are no infiltrates. Pleura: There are no pleural effusions. Other: None IMPRESSION: NO ACTIVE DISEASE
[2018-05-05 09:26] LABS: EGFR Non-African American 77.3 (>60)
[2018-05-05] MEDS: Atorvastatin* 80 MG TAB PO SCH (17:53)
[2018-05-06] MEDS: Levothyroxine TAB* 75 MCG TAB PO SCH (05:07)
[2018-05-06 07:16] LABS: ABS Basophils 0 10^3/ul (0-0.2); ABS Eosinophils 0.3 10^3/ul (0-0.6); ABS Lymphocytes 1.8 10^3/ul (1.0-4.8); ABS Monocytes 1.1 10^3/ul (0-0.8); ABS Neutrophils 7.1 10^3/ul (1.5-7.7); ABS Nucleated RBC 0 10^3/ul; Eosinophil % 3.2 % (0-6); Hematocrit 43 % (42-52); Hemoglobin 14.9 g/dl (14.0-18.0); Lymphocyte % 17.7 % (25-47); Mean Corpuscular HGB Conc 34 g/dl (31-36); Mean Corpuscular Hemoglobin 31 pg (27-31); Mean Corpuscular Volume 91 fL (80-94); Mean Platelet Volume 7.9 um3 (7.4-10.4); Nucleated Red Blood Cells % 0; Platelet Count 169 10^3/ul (150-450); Red Blood Count 4.76 10^6/ul (4.00-5.40); Red Cell Distribution Width 13 % (10.5-15); White Blood Count 10.4 10^3/ul (3.5-10.8)
[2018-05-06 07:34] LABS: EGFR Non-African American 75.5 (>60)
[2018-05-06] MEDS: Topiramate TAB(*) 100 MG PO SCH (08:09)
[2018-05-06] MEDS: amLODIPine TAB* 5 MG PO SCH (08:10)
[2018-05-06] MEDS: Ticagrelor* 90 MG TAB PO SCH (08:10)
[2018-05-06] MEDS: Aspirin 81 mg CHEW TAB* 81 MG TAB.CHEW PO SCH (08:10)
[2018-05-06 13:53] VITALS: BP 129/51
--- NOTE | 2018-05-06 15:49 | CATH ---
CC: Dr. Joe; Dr. Greene STENT REPORT: DATE OF PROCEDURE: 05/04/18 PRIMARY CARE PHYSICIAN: Dr. Greene HUMAN SERVICES CARE SPECIALIST: Dr. Joe. PROCEDURES: 1. Right radial artery access, bilateral selective coronary cineangiography. 2. Left heart catheterization. 3. Stent placement, circumflex 2.5 x 28 Synergy drug-eluting stent. HISTORY: A 73-year-old male with non-ST elevation infarct. PROCEDURE ACCESS: Right radial artery, sheath 6F slender. MEDICATIONS: 1. Subcu lidocaine. 2. IV Versed. 3. IV fentanyl. 4. Nitroglycerin 300 mcg. 5. Verapamil 3 mg IA. 6. Heparin 2000 units IV, 3000 units IV, 3000 units IV, 3000 units IV. 7. Brilinta 180 mg p.o. loading dose. DIAGNOSTIC CATHETERS: 5F TIG4, 6FL 3.5. Circumflex intervention guide, 6FLBU 3.5 with inadequate support to deliver a stent around the circumflex ostium once the circumflex marginal was accessed, therefore exchanged to 6FVL 3.5. After diagnostic angiography, the mid circumflex occlusion was approached, I was able to access the retroflexed circumflex with a 14BMW wire, the mid circumflex occlusion was predilated with a 2.5 x 12 balloon 8 atmospheres 22 seconds. A 2.5 x 28 Synergy stent was then advanced, but would not pass into the circumflex because of the retroflexed origin, the guiding system prolapsed. It was exchanged as above. I was finally able to re-access the circumflex using a wire through a microcatheter position in the very small first marginal branch to transiently occlude it, then advanced a runthrough 14 wire down the circumflex. The microcatheter and its wire were then removed. The 2.5 x 28 mm stent was advanced to the mid circumflex, deployed 11 atmospheres 15 seconds. It was post dilated with a 2.5 x 20 mm noncompliant balloon with overlapping inflation 16 atmospheres x2. HEMODYNAMICS: LV 144/22, AO 135/851 with no aortic valve gradient on review of the pullback strips. ANGIOGRAPHY: RCA: The RCA is dominant with a large distribution, moderate size with diffuse luminal irregularity without significant stenosis. The PDA has a less than 50% stenosis. The RCA is heavily calcified. Left main: The left main is relatively long, has a 20% mid stenosis, has a distal 30% stenosis. LAD: The LAD is moderate, extends past the apex, it is heavily calcified, it supplies too small to moderate diagonal branches, the LAD system has luminal irregularity, but no significant stenosis. Circumflex: The circumflex is [id number] in caliber, retroflex, calcified, has a proximal 30 to 40% stenosis, then reconstitutes, then it is occluded in the mid portion, there is faint distal filling of a distal posterolateral branch. After the occlusion point was crossed, predilated, there is a moderate caliber diffusely disease posterolateral that supplies most of the obtuse margin. After it was stented and post dilated, there is normal flow, no residual stenosis; there is nonobstructive plaque distal to the stent. There is some haziness just beyond the stent, but I do not think that is a significant stenosis. CONCLUSION: 1. Single vessel disease with diffuse nonobstructive atherosclerosis with heavily calcified coronary arteries. Successful revascularization circumflex occlusion with a drug-eluting stent, complicated procedure because of long left main with retroflex circumflex. 2. No aortic stenosis. 3. LV gram not performed. LV systolic function by echo precath reported. Normal LVEF 50 to 55%. [id number]/[facility] #: [id number] [facility] SERVIC[facility]bel
--- NOTE | 2018-05-06 20:44 | DS ---
CC: Dr. Joey Greene; Dr. Maurice Avalos; Dr. Noris Joe* DISCHARGE SUMMARY: DATE OF ADMISSION: 05/03/18 DATE OF DISCHARGE: 05/06/18 PRIMARY CARE PROVIDER: Dr. Joey Greene. MY ATTENDING WHILE IN THE HOSPITAL: Dr. Maurice Avalos* (dictated by LACEY Adams). OUTPATIENT TAGMAN: Dr. Noris Joe. PRIMARY DISCHARGE DIAGNOSES: 1. Non-ST elevation myocardial infarction, status post drug-eluting stent placement in the circumflex artery. 2. Brief ventricular tachycardia. SECONDARY DISCHARGE DIAGNOSES: 1. Hypertension. 2. Hypothyroidism. 3. Hyperlipidemia. 4. Seizures. STUDIES DONE WHILE IN THE HOSPITAL: EKG from 05/03/18 shows rate of 75, QTc of 410, normal sinus rhythm, early repolarization in V2, V3, V4. No other ST- segment abnormalities. Left axis deviation. No hypertrophy or enlargement. No other abnormalities. The patient had numerous EKGs while in the hospital, which showed any other changes besides a decrease in the rate to sinus bradycardia at 56. Chest x-ray from 05/03/18 read as no active disease. Transthoracic echocardiogram from 05/03/18 read as [id number] concentric left ventricular hypertrophy was observed, estimated ejection fraction 50% to 55 %, normal wall motion, abnormal left ventricular diastolic function was observed. The right ventricular global systolic function was normal. Mild mitral regurgitation. There is no tricuspid regurgitation. There is evidence of mild pulmonary hypertension. There is mild dilatation of the ascending aorta. No prior echo to compare. Chest x-ray from 05/05/18 read as no active disease. MEDICATIONS AT DISCHARGE: 1. Doxazosin 4 mg p.o. daily. 2. Topiramate 200 mg p.o. b.i.d. 3. Simvastatin 20 mg p.o. daily. 4. Levothyroxine 75 mcg p.o. daily. 5. Multivitamin 1 tab p.o. daily. 6. Garlic 500 mg p.o. daily. 7. Vitamin D 1000 units p.o. daily. 8. Albuterol 2 puffs inhalation t.i.d. as needed. 9. Nisoldipine ER. 10. Brilinta 90 mg p.o. b.i.d. 11. Tylenol 650 mg p.o. q.4 hours as needed. 12. Aspirin 81 mg p.o. daily. 13. Lipitor 80 mg p.o. daily. 14. Nitroglycerin 0.4 mg sublingually q.5 minutes as needed. New medications at discharge: 1. Brilinta. 2. Tylenol. 3. Aspirin. 4. Lipitor. 5. Nitroglycerin. Medication discontinued at discharge: Simvastatin 20 mg p.o. daily. HOSPITAL COURSE: This is a brief summary of the patient's presentation. For more details, please see the history and physical from Herrera Cassidy NP, on 05/13. In brief, the patient is a 73-year-old male with past medical history significant for the above, who presented to the emergency department for weakness, shortness of breath, fatigue, and chest discomfort for several hours on the day of presentation. The patient was feeling in his general state of health before he woke up on the day of presentation. The patient's pain radiated into his shoulder and to his back. He took aspirin and the discomfort went away after about 10 to 15 minutes. The patient was also diaphoretic with this episode. The patient has been having several weeks of increased dyspnea on exertion, but no chest pain before this. The patient had no other recent illnesses or changes in medications. The patient came into the emergency department. The patient had an 8-beat run of V-tach while in the emergency department. The patient's troponins began to elevate while in the emergency department. The patient was admitted to the hospital. The patient was given a heparin drip, nitroglycerin drip, amlodipine, and aspirin. The patient was seen in consultation by Dr. Noris Joe. The patient was deemed to be having an NSTEMI and was scheduled for cardiac catheterization in the morning. The patient's initial blood work showed no significant abnormalities. The patient' s LDL cholesterol was 58, HDL cholesterol was 27.1. The patient had one high PTT. The patient had a cardiac catheterization with stent placement on . After catheterization, the patient had good closure on his radial access site. The patient felt great with no chest pain after the procedure. The patient had no abnormalities on telemetry. The patient was started on Brilinta , aspirin, and statin. He had several episodes of shortness of breath, which he has had in the past and has never been evaluated by a independent contractor. The patient had no shortness of breath provoked by exertion, no more chest pain. The patient does have a significant smoking history. The patient was seen in consultation by Dr. Ester Stevens before the cardiac catheterization. The patient had no other significant abnormalities during his hospitalization or complaints. The patient was stable and amenable for discharge on 05/06/18. PHYSICAL EXAMINATION ON DAY OF DISCHARGE: General: The patient is a 73-year- old male, who appears his stated age and sitting comfortably in the bed, in no acute distress. Vital Signs: At the time of evaluation, temperature 98.4, pulse rate 61, respiratory rate 20, oxygen saturation 93% on room air, blood pressure 129/51. HEENT: Head normocephalic, atraumatic. Sclerae anicteric. No conjunctival injection. Nasal mucosa moist. Oral mucosa moist. No pharyngeal erythema, discharge, or exudate. Neck: Supple, nontender. No lymphadenopathy. No carotid bruit auscultated. No JVD. Cardiac: Regular rate and rhythm. No clicks, murmurs, gallops, or rubs. Pulses are 2+ in bilateral dorsal pedis, posterior tibial, and radial areas. No bilateral lower extremity edema noted. Respiratory: Clear to auscultation bilaterally. No wheezes, rales, or rhonchi. Good air exchange bilaterally. Abdomen: Soft, nontender, nondistended. Bowel sounds present and normoactive in all 4 quadrants. No hepatosplenomegaly. No abdominal bruits auscultated. No hepatojugular reflux. Genitourinary: No suprapubic or CVA tenderness. Skin: Right-sided radial access site benign. No other rash. Neuro: Cranial nerves II through XII intact. No focal deficits. Alert and oriented x3. Psychiatric: Pleasant and cooperative. LABORATORY DATA: On day of discharge, white blood cell count 10.4, hemoglobin 14.9, platelet count 169. Sodium 140, potassium 3.9, chloride 112, carbon dioxide 22, anion gap 6, BUN 15, creatinine 0.97, glucose 119, calcium 9.0. DISCHARGE PLAN: The patient will be discharged to home. The patient has been instructed on the importance of taking his Brilinta and aspirin daily due to his drug-eluting stent. The patient will be continued on antianginal medications as above. The patient has been given nitroglycerin. For chest pain , he should take nitroglycerin or return to the hospital. The patient should follow up with Dr. Noris Joe within 1 month for monitoring of his cardiac status. The patient should follow up with his primary care provider within 1 week for general medical management. The patient should discuss referral to a independent contractor for pulmonary function testing and management of his probable COPD. The patient should engage in activity as tolerated avoiding excessive strain. The patient should discuss with Dr. Joe referral to [facility]. The patient should have a heart-healthy diet without caffeine. The patient should return to the hospital for alarming symptoms such as recurrent chest pain as above, shortness of breath, passing out, severe palpitations, or other alarming symptoms. TIME SPENT: Approximately 60 minutes was spent on the discharge of this patient , 30 of which was spent [id number] with the patient obtaining history and physical and discussing treatment plan. LACEY ADAMS [id number]/[facility] #: [id number] SATYA
== END 2018-05-06 13:40 | disposition home or self-care (01) | DRG 247 ==
LOC: ED 09:54 → ICU 15:33 → MEDTELE 05-05 15:42
PROVIDERS: ADMIT Hospitalist; ATTEND Student in an Organized Health Care Education/Training Program
PROC: 4A023N7 Measurement of Cardiac Sampling and Pressure, Left Heart, Percutaneous Approach (ICD-10-PCS; principal; 2018-05-03)
PROC: 027034Z Dilation of Coronary Artery, One Artery with Drug-eluting Intraluminal Device, Percutaneous Approach (ICD-10-PCS; 2018-05-03)
PROC: B2111ZZ Fluoroscopy of Multiple Coronary Arteries using Low Osmolar Contrast (ICD-10-PCS; 2018-05-03)
DX: I21.4 Non-ST elevation (NSTEMI) myocardial infarction (principal); I47.2 Ventricular tachycardia; I10 Essential (primary) hypertension; E03.9 Hypothyroidism, unspecified; E78.5 Hyperlipidemia, unspecified; R00.1 Bradycardia, unspecified; I77.819 Aortic ectasia, unspecified site; I34.0 Nonrheumatic mitral (valve) insufficiency; I27.20 Pulmonary hypertension, unspecified; E66.9 Obesity, unspecified; G40.909 Epilepsy, unspecified, not intractable, without status epilepticus; D72.829 Elevated white blood cell count, unspecified; R73.9 Hyperglycemia, unspecified; I25.10 Atherosclerotic heart disease of native coronary artery without angina pectoris; J44.9 Chronic obstructive pulmonary disease, unspecified; N40.0 Benign prostatic hyperplasia without lower urinary tract symptoms; Z79.82 Long term (current) use of aspirin; Z79.02 Long term (current) use of antithrombotics/antiplatelets; Z88.1 Allergy status to other antibiotic agents; Z88.8 Allergy status to other drugs, medicaments and biological substances; Z88.0 Allergy status to penicillin; Z82.49 Family history of ischemic heart disease and other diseases of the circulatory system; Z87.891 Personal history of nicotine dependence; Z83.3 Family history of diabetes mellitus; Z80.42 Family history of malignant neoplasm of prostate; Z68.31 Body mass index [BMI] 31.0-31.9, adult
CPT/HCPCS: 36415; 71045; 80048; 80053; 80061; 81003; 82550; 82553; 83036; 83605; 83735; 83880; 84443; 84484; 85025; 85347; 85379; 85610; 85730; 87040; 87641; 93005; 93306; 93458; 94640; 99156; 99157; 99285; A9270-GY; C1725; C1769; C1876; C1887; C9600-LC; J1644; J2250; J3010

== ENCOUNTER 2018-06-09 18:38 | Emergency (ER) | payer MEDICARE, OTHER ==
--- OUTSIDE RECORDS SUMMARY | 2018-06-09 18:49 | XMS REPORT ---
:1945 External Reference #:[id number] Author Organization [employer] Address [address] [place] [address] Phone [phone] Care Team Providers Name Role Phone Joey Greene MD Primary Care Physician Unavailable Payers Type Date Identification Numbers Payment Provider Subscriber Medicare Primary Policy Number: [id number] Medicare Anderson Saldana PayID: [id number] [address] [place] [address] Medigap Part B Effective: 2009 Policy Number: [id number] Medicare Anderson Saldana Expires: 2018 PayID: [id number] [address] [place] [address] Medigap Part B Expires: 2016 Policy Number: [employer] Kia Saldana [id number] Group Number: [id number] [address] PayID: [id number] [place] [address] Medigap Part B Effective: Policy Number: [employer] Anderson Saldana 2016 [id number] PayID: [id number] [address] [place] [address] Problems Date Description Provider Status Onset: 05/04/2016 Mixed hyperlipidemia Joey Greene M.D. Active Onset: 05/04/2016 Essential hypertension Joey Greene M.D. Active Onset: 05/04/2016 Hypothyroidism Joey Greene M.D. Active Onset: 05/04/2016 Other seizures Joey Greene M.D. Active Onset: 08/25/2016 Obesity Joey Greene M.D. Active Onset: 12/01/2016 Tietze's disease Joey Greene M.D. Active Onset: 05/17/2018 Ex-smoker Joey Greene M.D. Active Onset: 05/17/2018 Chronic obstructive lung disease Joey Greene M.D. Active Onset: 05/17/2018 Patient post percutaneous Joey Greene M.D. Active transluminal coronary angioplasty Onset: 05/09/2018 Encounter for planned Anderson Stanford M.D., [facility], Active postprocedural wound closure [facility] Onset: 05/09/2018 Acute subendocardial infarction Anderson Stanford M.D., [facility], Active [facility] Onset: 05/04/2018 Leukocytosis Trisha Schulz NP Active Onset: 05/03/2018 Epilepsy Jorge Cassidy N.P. Active Onset: 01/12/2018 Neck pain Joey Greene M.D. Active Onset: 05/04/2016 Chest pain Joey Greene M.D. Inactive Inactive: 06/22/2016 Family History Date Family Member(s) Problem(s) Comments Father Prostate Cancer Mother Hypertension Mother Diabetes Type II First Sister Chronic Obstructive Pulmonary Disease (COPD) First Sister Diabetes Type II Social History Type Date Description Comments Marital Status Lives With Occupation Retired volunteer at [employer] Cigarette Use Former Cigarette Smoker ETOH Use Denies alcohol use Smoking Patient is a former smoker 1.5ppd X 38 years quit in 1994 Recreational Drug Use Denies Drug Use Daily Caffeine Consumes on average 4 sodas cans per day Exercise Type/Frequency Exercises regularly light walking, walks the mall, 1 time per week for 20-30 minutes General Hx Text 1 son Allergies, Adverse Reactions, Alerts Date Description Reaction Status Severity Comments 05/04/2016 Carbatrol pt cant remember active Mild 05/04/2016 Levofloxacin cant remember active Mild 05/04/2016 Augmentin cant remember active Mild Medications Medication Date Status Form Strength Qnty SIG Indications Ordering Provider Brilinta 05/06/ Active Tablets 90mg 180ta 1 tab by Joey Tiwari bs josé miguel twice Ramona a Leann conde Aspirin 81 Low 05/06/ Active Chewtabs 81mg 90uni 1 by mouth Marcis TAndrea Dose 2018 ts every day Hilda, , GRACIELA, [facility]SC[facility] Atorvastatin 05/06/ Active Tablets 80mg 90tab 1 by mouth Joey Calcium 2018 s every day Leann Greene Nitrostat 05/06/ Active Tablets 0.4mg 30tab one sl q5min Ester Fernando 2018 Sub s up to 3 Sodums, doses as GRACIELA MONTENEGRO, needed [facility] Nisoldipine ER 03/16/ Active Tablets 8.5mg 90tab once a day Joey 2018 ER 24HR s Leann Greene Proair HFA 08/24/ Active Aerosol 108(90Bas 1unit 2 puffs by J20.9 Valdo Mcclure 2016 e) s mouth three- Brenda, mcg/Act four times a M.D. day as needed Multi For Him / Active Tablets 1 by mouth Unknown 50+ 0000 every day Garlic / Active 500mg one daily Unknown 0000 (pt not sure of dosage) Vitamin D / Active Capsules 1000Units 1 by mouth Unknown 0000 every day Levothyroxine / Active Tablets 75mcg 90tab take 1 Phi Sodium 0000 s tablet by Vani Benitez, mouth every M.D.,FACP day Topiramate / Active Tablets 200mg 180ta Take 1 Joey 0000 bs Tablet By Pachika Mouth Twice , M.D. A Day Doxazosin / Active Tablets 4mg 90tab Take 1 [place] Mesylate 0000 s Tablet By Pachikara Mouth Every , M.D. Day Acetaminophen / Active Tablets 325mg 2 tablets by Unknown 0000 mouth every 6 hours as needed for pain/fever Macrodantin 01/02/ Hx Capsules 50mg 20cap 1 captwice R31.0 [place] 2017 - s daily Pachikara 01/02/ , M.D. 2017 Nitrofurantoin 01/02/ Hx Capsules 50mg 20cap 1 cap twice R31.0 Joey Macrocrystal 2017 - s daily Pachikara 05/17/ , M.D. 2017 Clarithromycin 06/22/ Hx Tablets 500mg 14tab 1 by mouth J18.9 Phi 2016 - s twice a day Vani Benitez, 06/29/ for 7 days M.D.,FACP 2016 (hold Zocor while on antibiotic) Cheratussin ac 06/22/ Hx Syrup 100-10mg/ 236ml 10 J18.9 Phi 2016 - 5ML milliliters Vani Benitez, 08/25/ by mouth M.DAndrea,[facility] 2016 four times a day as needed Betamethasone 05/05/ Hx Cream 0.1% 90gm apply to L30.9 Joey Valerate 2016 - affected Pachikara 02/23/ area twice , M.D. 2016 daily as needed Nisoldipine ER 05/05/ Hx Tablets 20mg 90tab 1/2 tab [place] 2015 - ER 24HR s daily Pachikara 03/16/ , M.D. 2017 Nisoldipine ER 05/04/ Hx Tablets 20mg 90tab E78.2 [place] 2015 - ER 24HR s Pachikara , M.D. 2015 Nisoldipine ER / Hx Tablets 10mg 1 daily Unknown 0000 - ER 24HR 2015 Simvastatin / Hx Tablets 20mg 90tab take 1 Phi 0000 - s tablet by Vani Benitez, 05/06/ mouth every M.D.,[facility] 2018 day Medications Administered in Office Medication Date Status Form Strength Qnty SIG Indications Ordering Provider Technetium TC Administered Injection Armani Rivera 99M 016 DO Leonardo Tetrofosmin, FACC Per Unit Dose Up To 40 Millicuries Immunizations CPT Code Status Date Vaccine Reaction Lot # 70216 Given 02/23/2017 Tdap - no immediate reaction [id number] Tetanus/Diptheria/Acellular noted. Pertussis 56753 Given 02/23/2017 Pneumococcal Conjugate no immediate reaction [id number] Vaccine 13 Valent For noted. Intramuscular Use 86386 Given 07/21/2016 Influenza Virus Vaccine, no immediate reaction [id number] Quadrivalent, Split Virus, noted .. .hh Im Use Vital Signs Date Vital Result Comment 06/01/2018 Height 71 inches 5'11" Weight 220.12 lb Heart Rate 70 /min BP Systolic Sitting 120 mmHg lue reg cuff BP Diastolic Sitting 50 mmHg lue reg cuff BP Systolic Standing 122 mmHg BP Diastolic Standing 64 mmHg Respiratory Rate 17 /min BMI (Body Mass Index) 30.7 kg/m2 05/17/2018 Height 71 inches 5'11" Weight 214.00 lb Heart Rate 72 /min BP Systolic Sitting 144 mmHg BP Diastolic Sitting 68 mmHg O2 % BldC Oximetry 97 % BMI (Body Mass Index) 29.8 kg/m2 05/09/2018 Height 71 inches 5'11" Weight 219.00 lb w/ shoes Heart Rate 70 /min BP Systolic Sitting 132 mmHg lue lg cuff BP Diastolic Sitting 62 mmHg lue lg cuff BP Systolic Standing 144 mmHg lue lg cuff BP Diastolic Standing 68 mmHg lue lg cuff Respiratory Rate 20 /min wheeze BMI (Body Mass Index) 30.5 kg/m2 Ejection Fraction 50-55% echo 05/03/18 01/12/2018 Weight 225.00 lb Heart Rate 92 /min BP Systolic 126 mmHg BP Diastolic 56 mmHg Body Temperature 98.6 F O2 % BldC Oximetry 94 % 01/02/2018 Weight 225.00 lb Heart Rate 90 /min BP Systolic 140 mmHg BP Diastolic 60 mmHg Body Temperature 97.3 F O2 % BldC Oximetry 97 % 10/05/2017 Height 69 inches 5'9" Weight 224.00 lb Heart Rate 79 /min BP Systolic 124 mmHg BP Diastolic 82 mmHg O2 % BldC Oximetry 98 % BMI (Body Mass Index) 33.1 kg/m2 08/24/2017 Height 69 inches 5'9" Weight 225.00 lb Heart Rate 79 /min BP Systolic Sitting 150 mmHg BP Diastolic Sitting 70 mmHg Respiratory Rate 16 /min Body Temperature 97.5 F O2 % BldC Oximetry 96 % BMI (Body Mass Index) 33.2 kg/m2 06/29/2017 Height 69 inches 5'9" Weight 217.75 lb Heart Rate 76 /min BP Systolic 120 mmHg BP Diastolic 64 mmHg O2 % BldC Oximetry 985 % BMI (Body Mass Index) 32.2 kg/m2 02/23/2017 Height 69 inches 5'9" Weight 220.00 lb Heart Rate 97 /min BP Systolic 132 mmHg BP Diastolic 60 mmHg Body Temperature 97.9 F O2 % BldC Oximetry 98 % BMI (Body Mass Index) 32.5 kg/m2 12/01/2016 Height 70.5 inches 5'10.50" Weight 230.00 lb Heart Rate 67 /min BP Systolic Sitting 118 mmHg BP Diastolic Sitting 56 mmHg Body Temperature 98.4 F O2 % BldC Oximetry 94 % BMI (Body Mass Index) 32.5 kg/m2 08/25/2016 Height 70.5 inches 5'10.50" Weight 227.00 lb Heart Rate 80 /min BP Systolic Sitting 142 mmHg BP Diastolic Sitting 70 mmHg Respiratory Rate 15 /min Body Temperature 98.0 F O2 % BldC Oximetry 98 % BMI (Body Mass Index) 32.1 kg/m2 06/22/2016 Weight 222.00 lb Heart Rate 114 /min BP Systolic Sitting 143 mmHg BP Diastolic Sitting 60 mmHg Respiratory Rate 14 /min Body Temperature 98.4 F O2 % BldC Oximetry 98 % 06/16/2016 Height 70.5 inches 5'10.50" Weight 220.00 lb Heart Rate 80 /min BP Systolic Sitting 146 mmHg BP Diastolic Sitting 70 mmHg Respiratory Rate 14 /min BMI (Body Mass Index) 31.1 kg/m2 05/26/2016 Height 70.5 inches 5'10.50" Weight 228.00 lb Heart Rate 81 /min BP Systolic 150 mmHg Rue BP Diastolic 66 mmHg Rue BP Systolic Sitting 138 mmHg Lue large cuff BP Diastolic Sitting 66 mmHg Lue large cuff BP Systolic Standing 148 mmHg Lue large cuff BP Diastolic Standing 58 mmHg Lue large cuff Respiratory Rate 20 /min BMI (Body Mass Index) 32.2 kg/m2 05/12/2016 Weight 220.00 lb Heart Rate 76 /min BP Systolic Sitting 142 mmHg BP Diastolic Sitting 74 mmHg Respiratory Rate 14 /min O2 % BldC Oximetry 97 % 05/05/2016 Height 69.5 inches 5'9.50" Weight 220.50 lb Heart Rate 66 /min BP Systolic 130 mmHg BP Diastolic 56 mmHg Body Temperature 97.6 F O2 % BldC Oximetry 96 % BMI (Body Mass Index) 32.1 kg/m2 05/04/2016 Height 69.5 inches 5'9.50" Weight 223.12 lb Heart Rate 72 /min BP Systolic Sitting 160 mmHg BP Diastolic Sitting 60 mmHg Body Temperature 98.1 F O2 % BldC Oximetry 98 % BMI (Body Mass Index) 32.5 kg/m2 Results Test Date Test Result H/L Range Note Laboratory test finding 05/03/2018 Magnesium 2.1 mg/dL 1.9-2.7 Creatine Kinase(CK) 67 U/L 10-223 TSH (Thyroid Stim Horm) 1.97 mcIU/mL 0.34-5.60 Comp Metabolic Panel 05/03/2018 Sodium 138 mmol/L 135-145 Potassium 4.2 mmol/L 3.5-5.0 Chloride 109 mmol/L 101-111 Co2 Carbon Dioxide 23 mmol/L 22-32 Anion Gap 6 mmol/L 2-11 Glucose 140 mg/dL High 70-100 Blood Urea Nitrogen 14 mg/dL 6-24 Creatinine 0.94 mg/dL 0.67-1.17 BUN/Creatinine Ratio 14.9 8-20 Calcium 8.9 mg/dL 8.6-10.3 Total Protein 6.4 g/dL 6.4-8.9 Albumin 4.0 g/dL 3.2-5.2 Globulin 2.4 g/dL 2-4 Albumin/Globulin Ratio 1.7 1-3 Total Bilirubin 0.30 mg/dL 0.2-1.0 Alkaline Phosphatase 84 U/L 34-104 Alt 15 U/L 7-52 Ast 19 U/L 13-39 Egfr Non- 78.2 >60 Egfr 94.7 >60 1 CKMB 05/03/2018 CKMB ng/mL 2.5 ng/mL 0.6-6.3 Laboratory test finding 05/03/2018 Troponin-I (TnI) 0.01 ng/mL <0.04 Laboratory test finding 05/03/2018 Troponin-I (TnI) 0.12 ng/mL High <0.04 2 Inr/Protime 05/03/2018 Inr 1.03 High 0.77-1.02 Laboratory test finding 05/03/2018 Partial Thrombo Time 32.9 seconds 26.0 -36.3 PTT Urinalysis Profile 05/03/2018 Urine Color Yellow Urine Appearance Clear Urine Specific Romance 1.011 1.010-1.030 Urine pH 7.0 5-9 Urine Urobilinogen Negative Negative Urine Ketones Negative Negative Urine Protein Negative Negative Urine Leukocytes Negative Negative Urine Blood Negative Negative Urine Nitrite Negative Negative Urine Bilirubin Negative Negative Urine Glucose Negative Negative Laboratory test finding 05/03/2018 B-Type Natriuretic 71 pg/mL 3 Peptide BNP Laboratory test finding 05/03/2018 Lactic Acid 0.9 mmol/L 0.5-2.0 4 CBC Auto Diff 05/03/2018 White Blood Count 9.2 10^3/uL 3.5-10.8 Red Blood Count 5.05 10^6/uL 4.00-5.40 Hemoglobin 15.7 g/dL 14.0-18.0 Hematocrit 46 % 42-52 Mean Corpuscular Volume 91 fL 80-94 Mean Corpuscular Hemoglobin 31 pg 27-31 Mean Corpuscular HGB Conc 34 g/dL 31-36 Red Cell Distribution Width 13 % 10.5-15 Platelet Count 161 10^3/uL 150-450 Mean Platelet Volume 7.7 um3 7.4-10.4 Abs Neutrophils 7.4 10^3/uL 1.5-7.7 Abs Lymphocytes 1.1 10^3/uL 1.0-4.8 Abs Monocytes 0.6 10^3/uL 0-0.8 Abs Eosinophils 0.1 10^3/uL 0-0.6 Abs Basophils 0 10^3/uL 0-0.2 Abs Nucleated RBC 0 10^3/uL Granulocyte % 80.2 % 38-83 Lymphocyte % 11.4 % Low 25-47 Monocyte % 6.6 % 0-7 Eosinophil % 1.5 % 0-6 Basophil % 0.3 % 0-2 Nucleated Red Blood Cells % 0.1 Ua Routine 01/02/2018 Ua Specific Romance 1.005 Ua PH 6 Ua Color yellow Ua Appera clear Ua WBC negative Ua Protein negative Ua Glucose negative Ua Ketones negative Ua Bilirubin negative Ua Urobilinogen normal Ua Nitrite trace Ua Occult Blood trace Urine Culture And 01/02/2018 Urine Culture SEE RESULT BELOW 5, 6 Sensitivities Laboratory test finding 01/02/2018 Cytology Non-Director Of [employer] SEE RESULT BELOW 5 , 7 Laboratory test finding 09/28/2017 TSH (Thyroid Stim 2.45 mcIU/mL 0.34- 5.60 Horm) PSA Screening 1.946 ng/mL 0-4.000 8 Hemoglobin A1c (Glyco HGB) 5.6 % 4.0-5.6 9 Lipid Profile (Trig/Chol/HDL) 09/28/2017 Triglycerides 138 mg/dL 10 Cholesterol 137 mg/dL 11 HDL Cholesterol 34.1 mg/dL 12 LDL Cholesterol 75 mg/dL 13 Comp Metabolic Panel 09/28/2017 Sodium 139 mmol/L 133-145 Potassium 4.2 mmol/L 3.5-5.0 Chloride 106 mmol/L 101-111 Co2 Carbon Dioxide 27 mmol/L 22-32 Anion Gap 6 mmol/L 2-11 Glucose 106 mg/dL High 70-100 Blood Urea Nitrogen 10 mg/dL 6-24 Creatinine 0.98 mg/dL 0.67-1.17 BUN/Creatinine Ratio 10.2 8-20 Calcium 9.3 mg/dL 8.6-10.3 Total Protein 6.5 g/dL 6.4-8.9 Albumin 4.3 g/dL 3.2-5.2 Globulin 2.2 g/dL 2-4 Albumin/Globulin Ratio 2.0 1-3 Total Bilirubin 0.40 mg/dL 0.2-1.0 Alkaline Phosphatase 92 U/L 34-104 Alt 17 U/L 7-52 Ast 21 U/L 13-39 Egfr Non- 74.8 >60 Egfr 96.2 >60 14 Laboratory test finding 05/05/2016 TSH (Thyroid Stim Horm) 2.44 mcIU/mL 0.34-5.60 Comp Metabolic Panel 05/05/2016 Sodium 138 mmol/L 133-145 Potassium 4.1 mmol/L 3.5-5.0 Chloride 110 mmol/L 101-111 Co2 Carbon Dioxide 22 mmol/L 22-32 Anion Gap 6 mmol/L 2-11 Glucose 113 mg/dL High 70-100 Blood Urea Nitrogen 13 mg/dL 6-24 Creatinine 0.98 mg/dL 0.67-1.17 BUN/Creatinine Ratio 13.3 8-20 Calcium 8.9 mg/dL 8.6-10.3 Total Protein 6.6 g/dL 6.4-8.9 Albumin 4.1 g/dL 3.2-5.2 Globulin 2.5 g/dL 2-4 Albumin/Globulin Ratio 1.6 1-3 Total Bilirubin 0.40 mg/dL 0.2-1.0 Alkaline Phosphatase 80 U/L 34-104 Alt 16 U/L 7-52 Ast 25 U/L 13-39 Egfr Non- 75.0 >60 Egfr 96.4 >60 15 Lipid Profile (Trig/Chol/HDL) 05/05/2016 Triglycerides 118 mg/dL 16 Cholesterol 133 mg/dL 17 HDL Cholesterol 29.8 mg/dL 18 LDL Cholesterol 80 mg/dL 19 Laboratory test finding 05/05/2016 Surgical Pathology SEE RESULT BELOW 20, 21 1 Because ethnic data is not always readily available, this report includes an eGFR for both -Americans and non- Americans. The National Kidney Disease Education Program (NKDEP) does not endorse the use of the MDRD equation for patients that are not between the ages of 18 and 70, are , have extremes of body size, muscle mass, or nutritional status, or are non- or non-. According to the National Kidney Foundation, irrespective of diagnosis, the stage of the disease is based on the level of kidney function: Stage Description GFR(mL/min/1.73 m(2)) 1 Kidney damage with normal or decreased GFR 90 2 Kidney damage with mild decrease in GFR 60-89 3 Moderate decrease in GFR 30-59 4 Severe decrease in GFR 15-29 5 Kidney failure <15 (or dialysis) 2 Verbal to [id number] by [id number] at 1433 on 05/03/18. Results read back accurately. 3 >100 to <200 pg/mL: likely compensated congestive heart failure (CHF) 200 to 400 pg/mL: likely moderate CHF >400 pg/mL: likely moderate to severe CHF 4 [facility] Severe Sepsis and Septic Shock Management Bundle Measure requires all lactic acids initially measuring >2.0 mmol/L be repeated. 5 [id number] 6 SEE RESULT BELOW Name: ANDERSON SALDANA : [address]: Joey Greene MD Acct: [id number] Unit: [id number] AGE: 72 Location: [facility] Re01/02/18 SEX: M Status: REG REF SPEC: [id number] SAMUEL: 01/02/18-1215 [facility] DR: Joey Greene MD REQ: [id number] RECD: 01/02/18 STATUS: COMP _ SOURCE: URINE SPDES: ORDERED: Urine Culture COMMENTS: [id number] Procedure Result Reported Site Urine Culture Final 01/04/18- 0835 ML No Growth (<1,000 CFU/mL) * ML - Main Lab . END OF REPORT DEPARTMENT OF PATHOLOGY, [address] [place] [address] Russ Espinosa M.D. Director [facility] # [id number] 7 SEE RESULT BELOW Name: ANDERSON SALDANA : [address]: Joey Greene MD Acct: [id number] Unit: [id number] AGE: 72 Location: [facility] Re01/02/18 SEX: M Status: REG REF SPEC: [id number] SAMUEL: 01/02/18-[address]: Joey Greene MD REQ: [id number] RECD: 01/02/18-1831 STATUS: SOUT _ ORDERED: NG THIN LAYER COMMENTS: [id number] FINAL DIAGNOSIS Urine, voided: --Negative for malignant cells. --Inflammation. URINE VOID - URINE CLINICAL HISTORY Hematuria GROSS DESCRIPTION 45 mls of clear yellow fluid. Signed (signature on file) Russ Espinosa MD 1149 END OF REPORT DEPARTMENT OF PATHOLOGY, [address] [place] [address] Russ Espinosa M.D. Director [facility] # [id number] 8 Serum levels of PSA measured using the Joann Antwerp DXI Hybritech immunoassay should not be interpreted as absolute evidence of the presence or absence of disease. The PSA value should be used in conjunction with other pertinent clinical diagnostic procedures. The values obtained with different assay methods or kits cannot be used interchangeably. 9 Therapeutic target for the treatment of diabetes mellitus patients is <7% HBA1C, and in selective patients <6.0%. Please refer to [place] [employer] diabetic care guidelines for further information. 10 Desirable: <150 Borderline High: 150-199 High: 200-499 Very High: >500 11 Desirable: <200 Borderline High: 200-239 High: >239 12 Low: <40 Desirable: 40-60 High: >60 13 Desirable: <100 Near Optimal: 100-129 Borderline High: 130-159 High: 160-189 Very High: >189 14 Because ethnic data is not always readily available, this report includes an eGFR for both -Americans and non- Americans. The National Kidney Disease Education Program (NKDEP) does not endorse the use of the MDRD equation for patients that are not between the ages of 18 and 70, are , have extremes of body size, muscle mass, or nutritional status, or are non- or non-. According to the National Kidney Foundation, irrespective of diagnosis, the stage of the disease is based on the level of kidney function: Stage Description GFR(mL/min/1.73 m(2)) 1 Kidney damage with normal or decreased GFR 90 2 Kidney damage with mild decrease in GFR 60-89 3 Moderate decrease in GFR 30-59 4 Severe decrease in GFR 15-29 5 Kidney failure <15 (or dialysis) 15 Because ethnic data is not always readily available, this report includes an eGFR for both -Americans and non- Americans. The National Kidney Disease Education Program (NKDEP) does not endorse the use of the MDRD equation for patients that are not between the ages of 18 and 70, are , have extremes of body size, muscle mass, or nutritional status, or are non- or non-. According to the National Kidney Foundation, irrespective of diagnosis, the stage of the disease is based on the level of kidney function: Stage Description GFR(mL/min/1.73 m(2)) 1 Kidney damage with normal or decreased GFR 90 2 Kidney damage with mild decrease in GFR 60-89 3 Moderate decrease in GFR 30-59 4 Severe decrease in GFR 15-29 5 Kidney failure <15 (or dialysis) 16 Desirable <150 Borderline high 150-199 High 200-499 Very High >500 17 Desirable <200 Borderline high 200-239 High >239 18 Low <40 Desirable: 40-60 High: >60 19 Desirable: <100 mg/dL Near Optimal: 100-129 mg/dL Borderline High: 130-159 mg/dL High: 160-189 mg/dL Very High: >189 mg/dL 20 [id number] 21 SEE RESULT BELOW Name: ANDERSON SALDANA : [address]: Joey Greene MD Acct: [id number] Unit: [id number] AGE: 71 Location: [facility] Re05/05/16 SEX: M Status: REG REF SPEC: [id number] SAMUEL: 05/05/16-094[facility] DR: Joey Greene MD REQ: [id number] RECD: 05/05/16844 STATUS: SOUT _ ORDERED: PASS STAIN, GMSS, LEVEL IV COMMENTS: [id number] GMS and PAS stains, with appropriately reacting controls, are negative for fungal organisms. Addendum Signed (signature on file) Ting Seth MD 0908 FINAL DIAGNOSIS Skin, right anterior abdominal wall, biopsy: -- Pityriasiform dermatitis with eosinophils; see comment. 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 Also included in the histologic differential diagnosis are a reaction to arthropod assault, pityriasis lichenoides et varioliformis acuta (PLEVA), and pityriasis lichenoides chronica. There is no evidence of leukocytoclastic vasculitis. Fungal staining is pending and will be reported in an addendum. CLINICAL HISTORY Multiple red rashes of body. PRE-OPERATIVE DIAGNOSIS Dermatitis GROSS DESCRIPTION The specimen is received in formalin with no source identified and a requisition labeled, Skin Lesion from Right Anterior Abdominal Wall, and consists of a 0.4 cm suarez- white circular skin punch excised to a depth of 0.2 cm, which is bisected and submitted entirely in one cassette. CONTINUED ON NEXT PAGE * ML=Testing performed at Main Lab DEPARTMENT OF PATHOLOGY, [address] [place] [address] Russ Espinosa M.D. Director [facility] # [id number] RUN DATE: 05/10/16 [facility] LAB LIVE PAGE 2 Patient: ANDERSON SALDANA [id number] (Continued) MICROSCOPIC DESCRIPTION (Continued) MICROSCOPIC DESCRIPTION Histologic sections show a punch biopsy of skin excised to include reticular dermis. Patchy parakeratosis and compact hyper-orthokeratosis are present overlying epidermis with mild spongiosis and basilar vacuolar change. Dermal edema and extravasated red blood cells are present in the superficial dermis. In the superficial to mid dermis in an interstitial and perivascular inflammatory infiltrate is present composed of lymphocytes and eosinophils. There is no evidence of leukocytoclastic vasculitis. Signed (signature on file) Ting Seth MD 09/10 1146 END OF REPORT * ML=Testing performed at Main Lab DEPARTMENT OF PATHOLOGY, [address] [place] [address] Russ Espinosa M.D. Director [facility] # [id number] Procedures Date CPT Code Description Status Comment 05/09/2018 67091 EKG Tracing & Interpretation Completed 05/04/2018 17914 Left Heart Cath. Incl S/I Coronaries, Angio S/I Completed V Gram If Done 05/04/2018 01844 Revascularization Acute Total/Subtotal Completed Occlusion 05/03/2018 37705 ECHO Transthorasic Realtime 2D W Doppler & Completed Color Flow Hosp 06/03/2016 42892 Stress Test Completed 06/03/2016 86846 Myocardial Perfusion Imaging Tomographic Completed (Spect) Multiple Studies 05/26/2016 13973 EKG Tracing & Interpretation Completed 05/07/2016 96636 EEG Recording Awake & Asleep Completed 05/05/2016 29230 Biopsy Skin Lesion Single Completed 12/05/2009 Colonoscopy Completed normal Encounters Type Date Location Provider CPT E/M Dx Office Visit 05/17/2018 [facility] Internal Medicine Joey Greene, [address]2576 Z98.61 8:40a - Matt Noriega E78.2 E03.9 I10 J44.9 Z87.891 Office Visit 05/09/2018 3:00p [facility] Anderson Stanford M.D., 19538 E78.2 Driller Operator AT [facility], FSCAI I10 I21.4 Z48.1 Office Visit 05/06/2018 11:48a [facility], ALCEY Moralez [address] I21.4 Hospitalists I10 G40.909 E78.5 Office Visit 05/05/2018 11:[address]a [facility], [place] [address] I21.4 Hospitalists D72.829 G40.909 I10 Office Visit 05/04/2018 4:19p [facility] Ester Stevens, [address]7961 I21.4 Driller Operator [place] [facility] [facility], FSCAI I10 E78.5 E66.9 I25.10 Office Visit 05/04/2018 11:[address] [facility], Trisha Schulz, LUIS M 29524 I21.4 Hospitalists E03.9 G40.909 D72.829 Office Visit 05/03/2018 4:18p [facility] Noris Joe M.D. 79671 R07.9 [facility] R79.89 I10 Office Visit 05/03/2018 11:[address]a [facility], Jorge Cassidy, [address]6577 R07.9 Hospitalists N.P. G40.909 I10 E03.9 Office Visit 01/12/2018 11:20a [facility] Internal Joey Greene, 87341 N30.01 Medicine - [place] Aron Noriega M54.2 Office Visit 01/02/2018 11:40a [facility] Internal Joey Greene M.D. 87273 R31.0 Medicine - [place] Aron M54.2 Office Visit 10/05/2017 11:00a [facility] Internal Medicine Joey Greene M.D. 12217 I10 Joslyn Gutierrez E78.2 E03.9 Office Visit 08/24/2017 1:00p [facility] Internal Medicine Valdo Gutierrez 51312 J20.9 - Tanya Noriega Office Visit 06/29/2017 10:40a [facility] Internal Medicine Joey Greene, 73304 I10 - Matt Noriega E78.2 E03.9 Z12.5 E78.1 Office Visit 12/01/2016 11:00a [facility] Internal Medicine Joey Greene M.D. 90077 I10 - Matt E78.2 E03.9 E66.9 M94.0 Office Visit 08/25/2016 11:00a [facility] Internal Medicine Joey Greene M.D. 44589 I10 - Matt E78.2 E03.9 E66.9 Office Visit 06/22/2016 9:10a [facility] Internal Medicine Phi Benitez, 13997 J18.9 - Matt Noriega,FACP Office Visit 06/16/2016 1:00p [facility] Tod Faria, 02984 G40.89 Services [facility] Leann I10 Office Visit 05/26/2016 1:00p [facility] [place] [address] R07.9 [facility] I10 F17.201 E78.2 E03.9 Office Visit 05/12/2016 11:40a [facility] Internal Medicine Joey Greene, 92036 L30.9 - Matt Noriega Office Visit 05/04/2016 11:00a [facility] Internal Medicine Joey Greene, 12909 R07.9 - Staci Sharp M.D. R21 E78.2 I10 G40.89 E03.9 Plan of Care Future Appointment(s):06/29/2018 1:00 pm - Theresa Casas MD at [facility]07/19/2018 11:00 am - Joey Greene M.D. 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
--- OUTSIDE RECORDS SUMMARY | 2018-06-09 18:49 | XMS REPORT ---
:1945 External Reference #:[id number] Author Organization [employer] Address [address] [place] [address] Phone [phone] Care Team Providers Name Role Phone Joey Greene MD Primary Care Physician Unavailable Payers Type Date Identification Numbers Payment Provider Subscriber Medicare Primary Effective: Policy Number: Medicare Anderson Saldana 2009 [id number] PayID: [id number] [address] [place] [address] Medigap Part B Expires: 2016 Policy Number: [employer] Kia Saldana [id number] Group Number: [id number] [address] PayID: [id number] [place] [address] Medigap Part B Effective: Policy Number: [employer] Anderson Saldana 2016 [id number] PayID: [id number] [address] [place] [address] Problems Date Description Provider Status Onset: 05/04/2016 [...] 05/09/2018 Encounter for planned Anderson Stanford M.D., [facility], Active postprocedural wound closure [facility] Onset: 05/09/2018 Acute subendocardial infarction Anderson Stanford M.D., [facility], Active [facility] Onset: 01/12/2018 Neck pain Joey Greene M.D. Active Onset: 05/04/2016 Chest pain Joey Greene M.D. Inactive Inactive: 06/22/2016 Family History Date Family Member(s) Problem(s) Comments Father Prostate Cancer Mother Hypertension Mother Diabetes Type II First Sister Chronic Obstructive Pulmonary Disease (COPD) First Sister Diabetes Type II Social History Type Date Description Comments Marital Status Lives With Occupation Retired volunteer at [employer] Cigarette Use Former Cigarette Smoker ETOH Use [...] Active Tablets 90mg 180ta 1 tab by Ester Fernando 2018 bs mouth twice Sodums, a day GRACIELA MONTENEGRO, IAIN Aspirin 81 Low 05/06/ Active Chewtabs 81mg 90uni 1 by mouth Ester Fernando Dose 2018 ts every day MD Stevens FACC, IAIN Atorvastatin 05/06/ Active Tablets 80mg 90tab 1 by mouth Ester Fernando Calcium 2018 s every day MD Stevens FACC, IAIN Nitrostat 05/06/ Active Tablets 0.4mg 30tab one sl q5min Ester Fernando 2018 Sub s up to 3 Sodums, doses as GRACIELA MONTENEGRO, needed [facility] Nisoldipine ER 03/16/ Active Tablets 8.5mg 90tab once a day Pooler 2017 ER 24HR s Leann Greene Proair HFA [...] / Active Tablets 200mg 180ta Take 1 Pooler 0000 bs Tablet By Pachika Mouth Twice , M.D. A Day Doxazosin / Active Tablets 4mg 90tab Take 1 Pooler Mesylate 0000 s Tablet By Pachikara Mouth Every , M.D. Day Acetaminophen / Active Tablets 325mg 2 tablets by Unknown 0000 mouth every 6 hours as needed for pain/fever Macrodantin 01/02/ Hx Capsules 50mg 20cap 1 captwice R31.0 Pooler 2017 - s daily Pachikara 01/02/ , M.D. 2017 Nitrofurantoin 01/02/ Hx Capsules 50mg 20cap 1 cap twice R31.0 Pooler Macrocrystal 2017 - s daily Pachikara 05/17/ , M.D. 2017 Clarithromycin 06/22/ Hx Tablets 500mg 14tab 1 by mouth J18.9 Phi 2016 - s twice a day Vani Benitez, 06/29/ for 7 days Timothy.Vani,FACP 2015 (hold Zocor while on antibiotic) Cheratussin ac 06/22/ Hx Syrup 100-10mg/ 236ml 10 J18.9 Phi 2016 - 5ML milliliters Vani Benitez, 08/25/ by mouth Leann,FACP 2016 four times a day as needed Betamethasone 05/05/ Hx Cream 0.1% 90gm apply to L30.9 Joey Valerate 2016 - affected Pachikara 02/23/ area twice , M.D. 2016 daily as needed Nisoldipine ER 05/05/ Hx Tablets 20mg 90tab 1/2 tab Joey 2015 - ER 24HR s daily Pachikara , M.D. 2017 Nisoldipine ER 05/04/ Hx Tablets 20mg 90tab E78.2 Joey 2015 - ER 24HR s Pachikara , M.D. 2015 Nisoldipine ER / Hx Tablets 10mg 1 daily Unknown 0000 - ER 24HR 2015 Simvastatin / Hx Tablets 20mg 90tab take 1 Phi 0000 - s tablet by Vani Benitez, 05/06/ mouth every M.D.,FACP 2017 Medications Administered in Office Medication Date Status Form Strength Qnty SIG Indications Ordering Provider Technetium TC Administered Injection Armani Rivera 99M 016 Leonardo, Tetrofosmin, FACC Per Unit Dose Up To 40 Millicuries Immunizations CPT Code Status Date Vaccine Reaction Lot # [id number] Given 02/23/2017 Tdap - no immediate reaction [id number] Tetanus/Diptheria/Acellular noted. Pertussis 70589 Given 02/23/2017 Pneumococcal Conjugate no immediate reaction [id number] Vaccine 13 Valent For noted. Intramuscular Use 24122 Given 07/21/2016 Influenza Virus Vaccine, no immediate reaction [id number] Quadrivalent, Split Virus, noted .. .hh Im Use Vital Signs Date Vital Result Comment 05/17/2018 Height 71 inches 5'11" Weight 214.00 [...] Color Yellow Urine Appearance Clear Urine Specific Mize 1.011 1.010-1.030 Urine pH 7.0 5-9 Urine [...] % 0.1 Ua Routine 01/02/2018 Ua Specific Mize 1.005 Ua PH 6 Ua Color yellow Ua Appera clear Ua WBC negative Ua Protein negative Ua Glucose negative Ua Ketones negative Ua Bilirubin negative Ua Urobilinogen normal Ua Nitrite trace Ua Occult Blood trace Urine Culture And 01/02/2018 Urine Culture SEE RESULT BELOW 5, 6 Sensitivities Laboratory test finding 01/02/2018 Cytology Non-Dupligraph Operator SEE RESULT BELOW 5 , 7 Laboratory [...] failure <15 (or dialysis) 2 Verbal to [id number] by [id number] at 1433 on 05/03/18. Results read back accurately. 3 >100 to <200 pg/mL: likely compensated congestive heart failure (CHF) 200 to 400 pg/mL: likely moderate CHF >400 pg/mL: likely moderate to severe CHF 4 [facility] Severe Sepsis and Septic Shock Management Bundle Measure requires all lactic acids initially measuring >2.0 mmol/L be repeated. 5 [id number] 6 SEE RESULT BELOW Name: ANDERSON SALDANA : [address]: Joey Greene MD Acct: [id number] Unit: [id number] AGE: 72 Location: [facility] Re01/02/18 SEX: M Status: REG REF SPEC: [id number] SAMUEL: 01/02/18-[address] [facility] [address]: Joey Greene MD REQ: [id number] RECD: 01/02/18 STATUS: COMP _ SOURCE: URINE SPDESC: ORDERED: Urine Culture COMMENTS: [id number] Procedure Result Reported Site Urine Culture Final 01/04/18- 0835 ML No Growth (<1,000 CFU/mL) * ML - Main Lab . END OF REPORT DEPARTMENT OF PATHOLOGY, [address] [place] [address] Russ Espinosa M.D. Director [facility] # [id number] 7 SEE RESULT BELOW Name: ANDERSON SALDANA : [address]: Joey Greene MD Acct: [id number] Unit: [id number] AGE: 72 Location: [facility] Re01/02/18 SEX: M Status: REG REF SPEC: [id number] SAMUEL: 01/02/18-[address] [facility] [address]: Joey Greene MD REQ: [id number] RECD: 01/02/18 STATUS: SOUT _ ORDERED: NG THIN LAYER COMMENTS: [id number] FINAL DIAGNOSIS Urine, voided: --Negative for malignant cells. --Inflammation. URINE VOID - URINE CLINICAL HISTORY Hematuria GROSS DESCRIPTION 45 mls of clear yellow fluid. Signed (signature on file) Russ Espinosa MD 1149 END OF REPORT DEPARTMENT OF PATHOLOGY, [address] [place] [address] Russ Espinosa M.D. Director [facility] # [id number] 8 Serum levels of PSA measured using the [employer] [place] DXI Hybritech immunoassay should not be interpreted [...] in selective patients <6.0%. Please refer to [place] [employer] diabetic care guidelines for further [...] 160-189 mg/dL Very High: >189 mg/dL 20 [id number] 21 SEE RESULT BELOW Name: ANDERSON SALDANA : [address]: Joey Greene MD Acct: [id number] Unit: [id number] AGE: 71 Location: [facility] Re05/05/16 SEX: M Status: REG REF SPEC: [id number] SAMUEL: 05/05/16-[address] [facility] [address]: Joey Greene MD REQ: [id number] RECD: 05/05/16674 STATUS: SOUT _ ORDERED: PASS STAIN, GMSS, LEVEL IV COMMENTS: [id number] GMS and PAS stains, with appropriately reacting [...] performed at Main Lab DEPARTMENT OF PATHOLOGY, [address] [place] [address] Russ Espinosa M.D. Director [facility] # [id number] RUN DATE: 05/10/16 [facility] LAB LIVE PAGE 2 Patient: ANDERSON SALDANA [id number] (Continued) MICROSCOPIC DESCRIPTION (Continued) MICROSCOPIC DESCRIPTION Histologic [...] performed at Main Lab DEPARTMENT OF PATHOLOGY, [address] [place] [address] Russ Espinosa M.D. Director [facility] # [id number] Procedures Date CPT Code Description Status Comment 05/09/2018 95875 EKG Tracing & Interpretation Completed 05/04/2018 43779 Left Heart Cath. Incl S/I Coronaries, Angio S/I Completed V Gram If Done 05/04/2018 35176 Revascularization Acute Total/Subtotal Completed Occlusion 05/03/2018 66526 ECHO Transthorasic Realtime 2D W Doppler & Completed Color Flow Hosp 06/03/2016 57914 Stress Test Completed 06/03/2016 38992 Myocardial Perfusion Imaging Tomographic Completed (Spect) Multiple Studies 05/26/2016 69141 EKG Tracing & Interpretation Completed 05/07/2016 16503 EEG Recording Awake & Asleep Completed 05/05/2016 16009 Biopsy Skin Lesion Single Completed 12/05/2009 Colonoscopy Completed normal Encounters Type Date Location Provider CPT E/M Dx Office Visit 05/09/2018 [place] [facility] Anderson Stanford M.D., 83842 E78.2 3:00p Funder AT [facility], [facility] I10 I21.4 Z48.1 Office Visit 05/04/2018 4:19p [place] Ester Stevens, 74602 I21.4 Funder AT [facility] , FAC, [facility] I10 E78.5 E66.9 I25.10 Office Visit 05/03/2018 4:18p [place] [facility] Of Noris Joe M.D. 10219 R07.9 [place] R79.89 I10 Office Visit 01/12/2018 11:20a [facility] Joey Greene, 61909 N30.01 Medicine - [place] Aron Noriega M54.2 Office Visit 01/02/2018 11:40a [facility] Internal Joey Greene M.D. 37267 R31.0 Medicine - [address] [address] M54.2 Office Visit 10/05/2017 11:00a [facility] Internal Medicine Joey Greene M.D. 75124 I10 - Matt E78.2 E03.9 Office Visit 08/24/2017 1:00p [facility] Internal Medicine Valdo Gutierrez, 78840 J20.9 Joslyn Martínez M.D. Office Visit 06/29/2017 10:40a [facility] Internal Medicine Joey Greene 08959 I10 - Matt Noriega E78.2 E03.9 Z12.5 E78.1 Office Visit 12/01/2016 11:00a [facility] Internal Medicine Joey Greene M.D. 45639 I10 - Matt E78.2 E03.9 E66.9 M94.0 Office Visit 08/25/2016 11:00a [facility] Internal Medicine Joey Greene M.D. 75734 I10 - Matt E78.2 E03.9 E66.9 Office Visit 06/22/2016 9:10a [facility] Internal Medicine Phi Benitez, 81336 J18.9 - Matt Noriega,FACP Office Visit 06/16/2016 1:00p [facility] Tod Faria, 00492 G40.89 Services Of Kaye Noriega I10 Office Visit 05/26/2016 1:00p [facility] [place] [address] R07.9 [facility] I10 F17.201 E78.2 E03.9 Office Visit 05/12/2016 11:40a [facility] Internal Medicine Joey Greene 08791 L30.9 - Matt Noriega Office Visit 05/04/2016 11:00a [facility] Internal Medicine Joey Greene, 47602 R07.9 - [place] Aron Noriega R21 E78.2 I10 G40.89 E03.9 Plan of Care Future Appointment(s):07/19/2018 11:00 am - Joey Greene M.D. at [facility] Internal Medicine - Nqrbgkwex69/06/2018 3:40 pm - Armani Patterson DO FAC at [place] [facility]05/17/2018 - Joey Greene M.D.Z98.61 Coronary angioplasty tgybkbS96.2 Mixed hyperlipidemiaComments:Your goal LDL is <130. You are meeting/not meeting this goal. Discussed diet, avoiding trans fats, reducing saturated fats.Please read the diet literature provided. Continue statin medication, call me if muscle weakness or pain occurs.Goals:Exercising 30 minutes 5 times a week will help raise HDL (good cholesterol) and lower LDL ( bad cholesterol.) You need to lose 1-2 pounds per month to move towards a BMI ( body mass index) of less than 25.E03.9 Hypothyroidism, jmjbafstqfcY10 Essential (primary) przinulyozbeE04.9 Chronic obstructive pulmonary disease, unspecifiedReferral:Theresa Casas MD, Pulmonary DiseasesFollow up:2 ahhtylL36.891 Personal history of nicotine dependenceNew Xrays:US Aorta Screening
[2018-06-09 19:37] VITALS: BP 172/74
[2018-06-09] MEDS ORDERED: HYDROcodone/ACETAMIN 5-325 MG* 1 TAB PO ONE (20:07)
--- NOTE | 2018-06-09 20:13 | UC ---
Dental HPI - HPI Summary HPI Summary: Patient is complaining of a toothache in his left lower jaw since last night area he denies any associated swelling. He states that he felt warm like he may have a fever. He notes that rinsing his mouth Cold water improves the pain. He has taken Tylenol without much relief. He denies any neck pain, chest pain, short of breath, nausea and diaphoresis. - History of Current Complaint Chief Complaint: UCDentalProblem Stated Complaint: TOOTH COMP. Time Seen by Provider: 06/09/18 19:50 Hx Obtained From: Patient Pain Intensity: 8 - Allergies/Home Medications Allergies/Adverse Reactions: Allergies Allergy/AdvReac Type Severity Reaction Status Date / Time amoxicillin [From Augmentin] Allergy Unknown Unknown Verified 06/09/18 19:20 Reaction Details clavulanic acid Allergy Unknown Unknown Verified 06/09/18 19:20 [From Augmentin] Reaction Details levofloxacin [From Levaquin] Allergy Unknown Verified 06/09/18 19:20 Reaction Details CARBATRAL Allergy Unknown Unknown Uncoded 06/09/18 19:20 Reaction Details PMH/Surg Hx/FS Hx/Imm Hx Endocrine History: Thyroid Disease Cardiovascular History: Cardiac Disease, Hypertension - Surgical History Surgical History: Yes Surgery Procedure, Year, and Place: CARDIAC STENTS - Family History Known Family History: Negative: Blood Disorder - Social History Occupation: Retired Lives: With Family Alcohol Use: Rare Substance Use Type: None Smoking Status (MU): Former Smoker Have You Smoked in the Last Year: No When Did the Patient Quit Smoking/Using Tobacco: 25 YRS AGO - Immunization History Most Recent Influenza Vaccination: 2017 Most Recent Pneumonia Vaccination: 2013 Vaccination Up to Date: Yes Review of Systems Constitutional: Negative Skin: Negative Eyes: Negative ENT: Dental Pain Respiratory: Negative Cardiovascular: Negative Gastrointestinal: Negative Genitourinary: Negative Motor: Negative Neurovascular: Negative Musculoskeletal: Negative Neurological: Negative Psychological: Negative Is Patient Immunocompromised?: No All Other Systems Reviewed And Are Negative: Yes Physical Exam Triage Information Reviewed: Yes Appearance: Well-Appearing Vital Signs: Initial Vital Signs Temp 98.1 F 06/09/18 19:25 Pulse 79 06/09/18 19:25 Resp 22 06/09/18 19:25 BP 172/74 06/09/18 19:25 Pulse Ox 99 06/09/18 19:25 Vital Signs Reviewed: Yes Eyes: Positive: Conjunctiva Clear ENT: Positive: Pharynx normal, TMs normal. Negative: Nasal congestion, Nasal drainage Dental: Positive: Percussion Tenderness @ - L lower back teeth, Gross Decay/ Caries @ - L lower back teeth, Other: - L low jaw tender but no swelling. Negative: Abscess @ Neck: Positive: Supple, Nontender, No Lymphadenopathy Respiratory: Positive: Lungs clear, Normal breath sounds Cardiovascular: Positive: RRR, No Murmur Abdomen Description: Positive: Nontender, No Organomegaly, Soft Bowel Sounds: Positive: Present Musculoskeletal: Positive: ROM Intact Neurological: Positive: Alert Psychological: Positive: Age Appropriate Behavior Skin Exam: Normal Skin: Negative: rashes Dental Complaint Course/Dx - Differential Dx/Diagnosis Differential Diagnosis/Dx: Dental Abscess, Dental Caries, Fractured Tooth Provider Diagnoses: L low jaw pain Discharge - Sign-Out/Discharge Documenting (check all that apply): Patient Departure All imaging exams completed and their final reports reviewed: No Studies - Discharge Plan Condition: Stable Disposition: HOME Prescriptions: Clindamycin Cap(NF) [Clindamycin Cap 300 mg Cap(NF)] 300 mg PO TID 7 Days #21 cap Hydrocodone/Acetaminophen [[place] 5-325 Tablet] 1 each PO Q6HR PRN #10 tablet MDD 4 PRN Reason: Pain (Dental) Patient Education Materials: Toothache (ED) Referrals: Joey Greene MD [Primary Care Provider] - If Needed Additional Instructions: FOLLOW UP DR GERSON ALEXIS, YOUR DENTIST THIS COMING TUESDAY. - Billing Disposition and Condition Condition: STABLE Disposition: Home
== END 2018-06-09 20:17 | disposition home or self-care (01) ==
LOC: UCCORT 18:38
DX: R68.84 Jaw pain (principal); Z88.0 Allergy status to penicillin; Z88.8 Allergy status to other drugs, medicaments and biological substances; Z88.1 Allergy status to other antibiotic agents
CPT/HCPCS: 99212; G0463